=== PATIENT | female | born 1945 | race Caucasian/White ===

== ENCOUNTER → 2023-12-05 10:56 | Outpatient (REF) | payer MEDICARE, OTHER, SELFPAY ==
[2023-12-05 12:14] LABS: ALT (SGPT) 14 U/L (0-35); AST (SGOT) 28 U/L (14-36); Albumin 3.5 g/dl (3.5-5.0); Alkaline Phosphatase 107 U/L (38-126); Blood Urea Nitrogen 21 mg/dl (7-17); Calcium 9.6 mg/dl (8.4-10.2); Carbon Dioxide 31 mmol/L (22-30); Chloride 97 mmol/L (98-107); Glucose 122 mg/dl (70-99); Sodium 137 mmol/L (135-145); Total Bilirubin 0.8 mg/dl (0.2-1.3); Total Protein 6.3 g/dl (6.3-8.2); eGFR 51.43
== END ==
LOC: REG 10:56
PROVIDERS: ATTENDING PHYSICIAN Internal Medicine Hematology & Oncology; FAMILY PHYSICIAN Internal Medicine
DX: C64.1 Malignant neoplasm of right kidney, except renal pelvis (principal); C78.00 Secondary malignant neoplasm of unspecified lung; D64.9 Anemia, unspecified; C79.51 Secondary malignant neoplasm of bone; R09.02 Hypoxemia
CPT/HCPCS: 36415; 80053

== ENCOUNTER → 2024-02-16 10:34 | Outpatient (REF) | payer MEDICARE, OTHER, SELFPAY | LOC: RAD 10:34 | PROVIDERS: ATTENDING PHYSICIAN Nurse Practitioner Adult Health; FAMILY PHYSICIAN Internal Medicine | DX: C64.1 Malignant neoplasm of right kidney, except renal pelvis (principal); C78.00 Secondary malignant neoplasm of unspecified lung; D64.9 Anemia, unspecified; C79.51 Secondary malignant neoplasm of bone; R09.02 Hypoxemia | CPT/HCPCS: 72128 ==

== ENCOUNTER → 2024-10-06 14:24 | Outpatient (REF) | payer MEDICARE, OTHER, SELFPAY ==
[2024-10-06 15:48] LABS: Blood Urea Nitrogen 26 mg/dl (7-17); Calcium 9.5 mg/dl (8.4-10.2); Carbon Dioxide 36 mmol/L (22-30); Chloride 93 mmol/L (98-107); Glucose 105 mg/dl (70-99); Potassium 4.3 mmol/L (3.5-5.1); Sodium 137 mmol/L (135-145); eGFR 57.31
== END ==
LOC: REG 14:24
PROVIDERS: ATTENDING PHYSICIAN Internal Medicine Hematology & Oncology; FAMILY PHYSICIAN Internal Medicine; OTHER PHYSICIAN Internal Medicine Hospice and Palliative Medicine
DX: C64.1 Malignant neoplasm of right kidney, except renal pelvis (principal); C78.00 Secondary malignant neoplasm of unspecified lung; D64.9 Anemia, unspecified; C79.51 Secondary malignant neoplasm of bone; R09.02 Hypoxemia; G89.3 Neoplasm related pain (acute) (chronic)
CPT/HCPCS: 36415; 80048

== ENCOUNTER → 2024-10-14 08:11 | Outpatient (REF) | payer MEDICARE, OTHER, SELFPAY | LOC: RAD 08:11 | PROVIDERS: ATTENDING PHYSICIAN Internal Medicine Hematology & Oncology; FAMILY PHYSICIAN Internal Medicine; OTHER PHYSICIAN Internal Medicine Hospice and Palliative Medicine | DX: C64.1 Malignant neoplasm of right kidney, except renal pelvis (principal); C78.00 Secondary malignant neoplasm of unspecified lung; D64.9 Anemia, unspecified; C79.51 Secondary malignant neoplasm of bone; R09.2 Respiratory arrest; G89.3 Neoplasm related pain (acute) (chronic) | CPT/HCPCS: 71250; 74176 ==

== ENCOUNTER → 2024-11-10 14:47 | Outpatient (REF) | payer MEDICARE, OTHER, SELFPAY | LOC: MRI 3T 14:47 | PROVIDERS: ATTENDING PHYSICIAN Internal Medicine Hematology & Oncology; FAMILY PHYSICIAN Internal Medicine; REFERRING PHYSICIAN Internal Medicine Hospice and Palliative Medicine | DX: C64.1 Malignant neoplasm of right kidney, except renal pelvis (principal); C78.00 Secondary malignant neoplasm of unspecified lung; D64.9 Anemia, unspecified | CPT/HCPCS: 70553 ==

== ENCOUNTER → 2025-05-07 09:18 | Outpatient (REF) | payer MEDICARE, OTHER, SELFPAY ==
[2025-05-07 10:15] LABS: Hematocrit 39.2 % (37.0-47.0); Hemoglobin 12.5 g/dL (12.0-16.0); Mean Corp Hgb Conc. 31.9 g/dL (33.0-37.0); Mean Corpuscular Volume 100.0 fL (81.0-99.0); Nucleated Red Blood Cells % 0 %; Platelet Count 191 10^3/uL (130-400); Red Cell Dist. Width 13.2 % (11.5-14.5)
[2025-05-07 11:09] LABS: ALT (SGPT) 22 U/L (0-35); AST (SGOT) 29 U/L (14-36); Albumin 4.0 g/dl (3.5-5.0); Alkaline Phosphatase 100 U/L (38-126); Blood Urea Nitrogen 30 mg/dl (7-17); Calcium 9.4 mg/dl (8.4-10.2); Carbon Dioxide 35 mmol/L (22-30); Chloride 97 mmol/L (98-107); Glucose 136 mg/dl (70-99); HDL Cholesterol 45 mg/dl; LDL Cholesterol, Calculated 70 mg/dl; Potassium 4.6 mmol/L (3.5-5.1); Sodium 137 mmol/L (135-145); Total Protein 6.6 g/dl (6.3-8.2); Very Low Density Lipoprotein 30 mg/dl (0-30); eGFR 41.57
[2025-05-07 11:22] LABS: Glycohemoglobin (HgbA1c) 6.3 % (4.0-5.6)
== END ==
LOC: REG 09:18
PROVIDERS: ATTENDING PHYSICIAN Internal Medicine; REFERRING PHYSICIAN Internal Medicine Hematology & Oncology
DX: E11.9 Type 2 diabetes mellitus without complications (principal); E78.5 Hyperlipidemia, unspecified; I10 Essential (primary) hypertension; E03.9 Hypothyroidism, unspecified; E66.3 Overweight; Z00.01 Encounter for general adult medical examination with abnormal findings
CPT/HCPCS: 36415; 80053; 80061; 83036; 84443; 85025

== ENCOUNTER → 2025-05-11 10:14 | Outpatient (REF) | payer MEDICARE, OTHER, SELFPAY | LOC: HWRAD 10:14 | PROVIDERS: ATTENDING PHYSICIAN Internal Medicine Hematology & Oncology; FAMILY PHYSICIAN Internal Medicine | DX: C64.1 Malignant neoplasm of right kidney, except renal pelvis (principal); C78.00 Secondary malignant neoplasm of unspecified lung; C64.2 Malignant neoplasm of left kidney, except renal pelvis | CPT/HCPCS: 74150 ==

== ENCOUNTER 2025-05-17 12:37 | Inpatient (IN) | payer MEDICARE, OTHER, SELFPAY ==
[2025-05-17] VITALS (17 sets, daily range): BP systolic 72–157; BP diastolic 38–84; BMI 30.8; BMI 29.2
[2025-05-17 08:37] LABS: Hematocrit 42.5 % (37.0-47.0); Hemoglobin 12.9 g/dL (12.0-16.0); Mean Corp Hgb Conc. 30.4 g/dL (33.0-37.0); Mean Corpuscular Volume 104.9 fL (81.0-99.0); Nucleated Red Blood Cells % 0 %; Platelet Count 172 10^3/uL (130-400); Red Cell Dist. Width 13.8 % (11.5-14.5)
--- NOTE | 2025-05-17 08:49 | ED.GENMED ---
History of Present Illness
General
Chief Complaint: Breathing Problem
Time Seen by Provider: 05/17/25 08:08
History of Present Illness
History of Present Illness:
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
breath. Patient reports shortness of breath for the past 3 days. Notes yesterday she started to feel very nauseous. This morning at 1 AM she woke up acutely with nausea, vomiting, diaphoresis and increased shortness of breath. Denies fever.
Does note cough, however is having difficulty expectorating. She is currently not on any treatment for her cancer. She denies any associated chest pain. She denies abdominal pain. She has noted some mild lower extremity edema. She is on Lasix.
Patient has a pulse ox at home, reports that her O2 saturations were going into the 70s. She is not oxygen dependent. She denies additional acute medical complaints
Past History
Past History
ED Past Medical History: Cancer (renal w/ mets to lungs, spine, bone, and adrenals), CVA (1994 lacunar), Fibromyalgia, GERD, HTN, Hypercholesterolemia, Hypothyroidism and Other (rectocele, left knee bursitis 2019)
ED Past Surgical History: Cholecystectomy, Gynecological (Hysterectomy) and Urological (right nephrectomy 2019 at [facility])
Patient has exhibited threatening behavior?: No
PSI?: No
Social History
Tobacco: Non-smoker
Alcohol: None
Drug: None
Personal:
Living: alone
Employment: Retired
Family History
Family History: CAD
Phy Exam
Physical Exam
Physical Exam:
General: Well-appearing, no clinical signs of dehydration, nontoxic and in no acute distress
HEENT: protecting airway
Neck: appears supple
CV: Normal heart rate, regular rhythm
Resp: No accessory muscle use, no increased work of breathing. Crackles to the left lung field
Abd: Soft and non-distended, no tenderness to palpation
Extremities: No deformities, +1 lower extremity edema
Neuro: alert, no focal neurologic deficit
: deferred
Rectal: deferred
Psych: Normal affect
Skin: Intact
Scores
Heart Failure Risk
Heart Failure Risk Score: Not Applicable
Course
Orders/Labs/Results
Orders:
Orders
05/17/25 08:05
Electrocardiogram (*1) Urgent
Reason for Study: Shortness of Breath
CXR2 [CR Chest - 2 Views ] Urgent
Comment:
Reason For Exam: shortness of breath
05/17/25 08:06
EKG- Treatment ONCE
05/17/25 08:28
Complete Blood Count/With Diff Urgent
Comprehensive Metabolic Panel Urgent
Magnesium Urgent
NT-proBNP Urgent
Troponin I Urgent
05/17/25 08:30
Morphine Sulfate Extended Rel. [Ms Contin (Extended Release)] 15 mg PO NOW STA
05/17/25 08:53
Morphine Sulfate Extended Rel. [Ms Contin (Extended Release)] 15 mg PO NOW STA
05/17/25 Lunch
Cholesterol Lowering
At Your Request: Full Participation
Does patient need a safe tray?: No
Reason for opting out of Otolaryngology Rep order writing: Provider Decision
Cholesterol Lowering: Sodium, 2 Gram
05/17/25 10:12
CT Chest W/o Iv Contrast Urgent
Comment:
Reason For Exam: hypoxic, SOB
05/17/25 12:25
Admit/Transfer Patient As Directed
Co-Sign Provider:
Level of Care: Inpatient admission
Assign to:: Telemetry
Physician / Group: Dr Calvert
Diagnosis: Hypoxia
Reason for Telemetry: Arrhythmia
Date to Stop Telemetry: 05/20/25
Time to Stop Telemetry: 11:00
Reason for Hospitalization: Hypoxia
Expected length of stay greater than two midnights?: Yes
ELOS- Estimated Length of Stay in days: 2
I certify the patient meets the requirements for IP care: Yes
Code Status As Directed
Resuscitation Status: Full Code
PRN Pain Medication Management As Directed
May give lesser potent ordered pain med per pt: Yes
preference::
Protocol:: Medication orders for pain may be administered in a
manner that supports deferring to patient preference
when the pt is:
- Requesting an ordered lesser potent pain medication.
Least to most potent pain medications are defined
as: acetaminophen < NSAID < tramadol < opioids
(morphine, oxycodone, hydromorphone).
- Requesting a lesser dose of the same medication IF
ORDERED.
- Requesting a less intrusive route of administration
if both routes are prescribed by the provider (PO <
IV).
05/17/25 12:26
PULMONARY CONSULT Routine
Consulting Provider: John Pa
Was physician already notified: Yes
Reason for consult: SOB and hypoxia eval
05/17/25 12:54
Bisacodyl [Dulcolax] 10 mg RECTAL [id number] PRN
Docusate W/Senna [Senokot-S] 1 tablet PO BIDPRN PRN
Polyethylene Glycol Powder [Miralax] 17 grams PO DAILYPRN PRN
05/17/25 12:54
Activity As Directed
Activity Level: Out of Bed-Early Mobility
Pneumatic Compression Sleeves As Directed
Type: Knee high
Vital Signs As Directed
Frequency: Per unit guidelines
DX Deep Vein Thrombosis Video Routine
05/18/25 06:00
Basic Metabolic Panel IN AM
Complete Blood Count/No Diff IN AM
05/20/25 11:00
DC Protocol for Telemetry ONCE
Abnormal Lab Results
05/17/25
08:28
RBC 4.05 L 10^6/uL
(4.20-5.40)
MCV 104.9 H fL
(81.0-99.0)
MCH 31.9 H pg
(27.0-31.0)
MCHC 30.4 L g/dL
(33.0-37.0)
MPV 10.9 H fL
(7.4-10.4)
Absolute Lymphs (auto) 0.8 L 10^3/uL
(1.2-3.4)
Neutrophils % 78.6 H %
(42.2-75.2)
Lymphocytes % 12.8 L %
(20.5-51.1)
Chloride 96 L mmol/L
(98-107)
Carbon Dioxide 34 H mmol/L
(22-30)
BUN 40 H mg/dl
(7-17)
Creatinine 1.5 H mg/dL
(0.6-1.0)
Glucose 155 H mg/dl
(70-99)
AST 445 H U/L
(14-36)
ALT 211 H U/L
(0-35)
Troponin I 0.332 H* ng/ml
Total Protein 6.2 L g/dl
(6.3-8.2)
05/17/25 08:28
05/17/25 08:28
Vital Signs
Initial and Last Documented VS:
Initial Vital Signs
BP
140/70
05/17/25 08:00
Last Documented Vital Signs
Temp Pulse Resp BP Pulse Ox
97.4 F 50 20 140/60 100
05/18/25 03:00 05/18/25 03:00 05/18/25 03:00 05/18/25 03:00 05/18/25 03:00
MDM/Problems Addressed
MDM/Problems Addressed:
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 Vital signs on
arrival significant for hypoxia.
On exam, patient placed on nasal cannula with improvement of oxygenation and work of breathing. Patient's on exam, crackles to the left lung field. Concern for fluid, possible effusion given known malignancy history. CHF is also consideration,
with mild lower extremity edema. EKG obtained on arrival, significant changes from prior EKG in 2021 with diffuse and deep wave inversions laterally. Patient however without any chest pain. Possible ischemic demand. Pneumonia is also
consideration, notes cough. Denies any fever. PE is on consideration, however lower suspicion given anticoagulation on Eliquis. Plan for laboratory analysis and chest x-ray imaging.
09:25 -patient's labs show elevated troponin. Given abnormal EKG and presenting hypoxia, will plan for CT of the chest. Chest x-ray shows slight pulmonary edema.
10:15 - Patient with IV contrast allergy. For this reason we will proceed with CT without contrast for further assessment of patient's hypoxia
11:00 -CT appears stable. Unclear etiology of patient's hypoxia, however warrants admission due to oxygen requirements, EKG changes, troponin elevation for continued cardiac monitoring, cardiac consultation, respiratory monitoring and oxygen support
*Pulse Oximetry
SaO2: 99
Nasal Cannula flow liters per minute: 3
Patient hypoxic: yes
*EKG
Interpreted by ED Provider?: Yes
EKG Intrepretation Date: 05/17/25
EKG Intrepretation Time: 08:53
Interpretation: abnormal
Comparison EKG: changes noted (08/28/22)
Rate: normal
Rhythm: sinus
Hensel: right axis deviation
Interval: normal interval
QRS Pattern: normal QRS
Ischemia: T-wave inversion (anteriorly and inferiorly)
*Critical Care Note
Total Time (30-74mins, 75-104mins- exclusive of procedures): Not Applicable
ED Attending Note
-
Portions of this chart may have been created with voice recognition software.� Occasional wrong word or��sound alike� substitutions may have occurred due to the inherent limitations of voice recognition software.
Discharge Plan
Departure
Patient Disposition: Admit
Date of Disposition: 05/17/25
Time of Disposition: 11:07
Presentation/result/management discussed w/ accepting MD/DO: Hospitalist
Patient with high blood pressure during this ER visit?: No
Condition: Fair
Discharge Problem:
Hypoxia, Shortness of breath
Interventions
Interventions:
*Risk Screen - Suicide Last Done: 05/17/25 08:06
*General Assessment Last Done: 05/17/25 08:06
*Neglect/Abuse Screening Last Done: 05/17/25 08:06
*ED- Fall Risk Assessment Last Done: 05/17/25 08:06
*ED COVID-19 Vaccine History Last Done: 05/17/25 08:06
*Nursing Disposition Last Done: 05/17/25 17:12
ED- Cardiac Assessment Last Done: 05/17/25 08:06
ED- Pulmonary Assessment Last Done: 05/17/25 08:06
Discharge Date and Time
Discharge Date/Time: 05/17/25 17:32
[2025-05-17 08:58] LABS: ALT (SGPT) 211 U/L (0-35); AST (SGOT) 445 U/L (14-36); Albumin 3.7 g/dl (3.5-5.0); Alkaline Phosphatase 122 U/L (38-126); Blood Urea Nitrogen 40 mg/dl (7-17); Calcium 8.9 mg/dl (8.4-10.2); Chloride 96 mmol/L (98-107); Estimated Creatinine Clearance 26 ml/min; Glucose 155 mg/dl (70-99); Magnesium 2.3 mg/dl (1.6-2.3); Potassium 4.7 mmol/L (3.5-5.1); Sodium 138 mmol/L (135-145); Total Protein 6.2 g/dl (6.3-8.2); eGFR 35.01
--- NOTE | 2025-05-17 09:00 | EDRN ---
the pts medication reconciliation was performed by this RN with the pt, the pt is aware of the medications that she takes daily
[2025-05-17 09:08] LABS: Carbon Dioxide 34 mmol/L (22-30)
[2025-05-17] MEDS: MS CONTIN (EXTENDED RELEASE) 15 MG PO ×3 (09:08→21:41)
[2025-05-17 09:24] LABS: Troponin I 0.332 ng/ml
--- NOTE | 2025-05-17 12:27 | HPS.HSE ---
Family Physician
-
Family Physician: Mode Simmons
Chief Complaint
-
Shortness of breath
History of Present Illness
Patient 80 years old female with multiple comorbidities presented to the hospital shortness of breath. Patient has been experiencing dyspnea on exertion that has progressively getting worse over the last week to 2 weeks associated with dry cough
and also lower extremity edema and weight gain. She denies any chest pain or leg pain. Patient has been taking her oral diuretics but she knows to take some extra diuretics when she gained weight she failed to do that yesterday as per patient
recall. She denies any fevers or chills. She denies nausea vomiting or diarrhea. She denies abdominal pain. She has been checking her pulse ox at home and it has been in the 70s. In the ER she was placed on supplemental oxygen and she had a
chest x-ray and a CT scan of the chest without contrast and also she was noted to have an elevated BNP and she was referred to hospitalist service for further evaluation
Medical History
Past Medical History
Past Medical History: Reports Other
Additional Past Medical History:
Stage IV Renal Cell Cancer
ASCVD / CVA / TIA
Hypertension
Hypothyroidism
Sarcoidosis
Multiple Prior PEs
Past Surgical History: Reports Other
Additional Past Surgical History:
Cholecystectomy
Partial Hysterectomy
Right Nephrectomy
T4 Tumor Excision / Laminectomy / Fusion
I&D of Surgical Site, Flap Surgery
Social History
Tobacco: Non-smoker
Alcohol: Occasional
Drug: None
Family History
Family History: Not pertinent
Allergies / Home Medications
Allergies reflects when Allergies were last updated in [facility].
Home Medications with original date entered in [facility]
Allergy/Medication List:
Allergies
Allergy/AdvReac Type Severity Reaction Status Date / Time
Iodinated Contrast Media Allergy Severe Rash Verified 05/17/25 10:09
Cephalosporins Allergy Unknown Verified 08/27/22 10:34
diflunisal Allergy Unknown Verified 08/27/22 10:34
erythromycin base Allergy Unknown Verified 08/27/22 10:34
iohexol (From Omnipaque) Allergy Hives Verified 08/27/22 10:[address]
NSAIDS (Non-Steroidal Allergy Unknown Verified 08/27/22 10:34
Anti-Inflamma
Sulfa (Sulfonamide Allergy Unknown Verified 08/27/22 10:34
Antibiotics)
ticlopidine Allergy thrombocytopenia Verified 08/27/22 10:34
per patient
Home Medications
apixaban 2.5 mg tablet (Eliquis) 2.5 mg PO BID Blood clot prevention/tx 04/19/22
morphine 15 mg tablet,extended release 15 mg PO BID #20 tabs 08/31/22
furosemide 20 mg tablet 40 mg PO DAILY Fluid retention/Swelling 01/05/23
oxycodone 5 mg tablet 5 mg PO Q4H PRN Pain 01/05/23
polyethylene glycol 3350 17 gram oral powder packet 17 g PO BID #0 ea 01/06/23
sennosides 8.6 mg tablet (senna) 17.2 mg (2 x 8.6 mg) PO HS #0 tabs 01/06/23
lorazepam 1 mg tablet (Ativan) 1 mg PO HS PRN anxiety 05/17/25
Review of Systems
-
A 12 point ROS was completed and negative except as noted: Yes
Physical Exam
Vital Signs
Vital Signs
Temp Pulse Resp BP Pulse Ox
98.2 F 62 20 139/66 100
05/17/25 11:59 05/17/25 11:59 05/17/25 11:59 05/17/25 11:59 05/17/25 11:59
Physical exam:
General: Acutely ill
HEENT: Normocephalic, Atraumatic and Moist Mucous Membranes
Respiratory: Few crackles in the bases; Negative Wheezes, or Rhonchi
Cardiac: Regular Rhythm and S1/S2
GI: Soft, Nontender and Nondistended
Musculoskeletal: Decreased range of motion of the back. No Clubbing, No Cyanosis and B/L Lower extremity Edema
Neuro: Awake, Alert and Oriented, no neurological deficit
Psych: Calm
Physical Exam
General: Other
Laboratory Results
-
05/17/25 08:28
05/17/25 08:28
Laboratory Results
Total Bilirubin 0.7 mg/dl (0.2-1.3) 05/17/25 08:28
AST 445 U/L (14-36) H 05/17/25 08:28
ALT 211 U/L (0-35) H 05/17/25 08:28
Alkaline Phosphatase 122 U/L (38-126) 05/17/25 08:28
Troponin I 0.332 ng/ml H* 05/17/25 08:28
Data Reviewed
-
Diagnostic Radiology: Image Personally Visualized and interpreted
CT Scan: Image Personally Visualized and interpreted
Lab Data: Labs Reviewed by me
Impression/Plan
-
IMPRESSION:
Patient 80 years old female with multiple comorbidities presented to the hospital with shortness of breath and hypoxia with respiratory failure. Probably multifactorial etiology but given patient presentation she is at increased risk of morbidity
mortality and will need to be treated in the hospital and monitor accordingly.
PLAN:
Acute hypoxic respiratory failure:
Suspect related to volume overload/heart failure but cannot exclude other etiologies yet in the setting of her multiple comorbidities
We will start her on diuresis
Oxygen supplementation
Pulmonary consult for further advice-discussed with pulmonary via [place] text today
Seen chest x-ray and CT scan of the chest without contrast
Acute on chronic diastolic congestive heart failure:
Will give Lasix 40 mg IV x 1 stat
Will continue with IV Lasix 40 mg daily with careful attention of renal function and blood pressures
BNP elevated at 13,500
Will monitor ins and outs and daily weights
Will update echocardiogram in a.m.
Elevated troponin:
Elevated troponin due to non-ischemic myocardial injury likely related to heart failure
TWIN:
Suspect cardiorenal syndrome
Monitor renal function while on diuresis
History of stage IV renal cell cancer:
History of nephrectomy in the past and T4 tumor excision status post chemo radiation and immunotherapy
She tells me her cancer has come back and her other kidney after resection and has spread significantly.
She knows her cancer is advanced and she is in the process of palliative care involvement and possible hospice in the near future
History of spine infection:
History of of postsurgical infection thoracic spine following spine surgery
She tells me she remains on antibiotics although I do not see on her med rec
Chronic pain with chronic narcotic use:
On scheduled morphine and oxycodone as needed
Bowel regimen resting
History of PE:
On Eliquis
Med rec not updated yet.
Other medical problems listed but not confirmed:
Hypertension
Hyperlipidemia
Hypothyroidism
CVA
Obesity
Chronic back pain
Diabetes mellitus
Gout
Pulmonary hypertension
Hyponatremia
CKD stage III
CHF
Sarcoidosis
DVT prophylaxis:
On Eliquis
CODE STATUS:
DNR
Time spent 75 minutes
[2025-05-17 14:40] LABS: Troponin I 0.532 ng/ml
--- NOTE | 2025-05-17 15:06 | EDRN ---
Dr. Calvert was notified of the second troponin that is trending up
[2025-05-17] MEDS: LASIX 40 MG IV (15:42)
--- NOTE | 2025-05-17 17:11 | EDRN ---
this RN called the receiving unit and notified them that paper report was going to be tubed up
[2025-05-17] MEDS: SENOKOT 25.8 MG PO (20:24)
[2025-05-17] MEDS: ELIQUIS 2.5 MG PO (20:25)
[2025-05-17] MEDS: ATIVAN 0.5 MG PO (21:41)
[2025-05-17 22:53] LABS: Troponin I 0.423 ng/ml
[2025-05-18 03:00] VITALS: BP 140/60
[2025-05-18] MEDS: SYNTHROID 50 MCG PO (04:12)
[2025-05-18 06:00] VITALS: BMI 29.0
[2025-05-18 07:05] VITALS: BP 138/64
[2025-05-18 07:28] LABS: Hematocrit 37.2 % (37.0-47.0); Hemoglobin 11.8 g/dL (12.0-16.0); Mean Corp Hgb Conc. 31.7 g/dL (33.0-37.0); Mean Corpuscular Volume 102.5 fL (81.0-99.0); Platelet Count 153 10^3/uL (130-400); Red Cell Dist. Width 13.4 % (11.5-14.5)
[2025-05-18 07:52] LABS: Troponin I 0.331 ng/ml
[2025-05-18 07:59] LABS: Blood Urea Nitrogen 33 mg/dl (7-17); Calcium 8.8 mg/dl (8.4-10.2); Carbon Dioxide 40 mmol/L (22-30); Chloride 93 mmol/L (98-107); Estimated Creatinine Clearance 32 ml/min; Glucose 93 mg/dl (70-99); Potassium 4.3 mmol/L (3.5-5.1); Sodium 137 mmol/L (135-145); eGFR 45.76
[2025-05-18] MEDS: MIRALAX 17 GRAMS PO (08:23)
[2025-05-18] MEDS: SENOKOT-S 1 TABLET PO (08:23)
[2025-05-18] MEDS: MS CONTIN (EXTENDED RELEASE) 15 MG PO ×3 (08:23→21:07)
[2025-05-18] MEDS: ELIQUIS 2.5 MG PO ×2 (08:24→21:06)
[2025-05-18] MEDS: LASIX 40 MG IV (08:24)
--- NOTE | 2025-05-18 10:07 | CARDSERVLU ---
Echocardiogram with [facility] completed after protocol screening completed. Allergies verified.
Patent IV site: __rt fa__
IV site flushed with 0.9% NaCl pre and post administration.
Diluted bolus method utilized to enhance visualization of ventricular kent.
Total volume given: _3.0 mL
Patient tolerated all procedures well without complications.
--- NOTE | 2025-05-18 10:53 | CM ---
Reviewed chart. Met with patient at bedside. Lives alone independently in a studio apartment no steps. Children visit frequently and provide support in the home.Currently on palliative care through [place].Uses walker at home, has a shower chair
and shower grab bars. Has had [facility] in the past.Currently on 5 L O2 via [place]. Patient wishes to go home. May need home O2 will follow. Use O2 in the past.
PCP mao Simmons
Pharmacy: [facility]
Insurance: Medicare with [employer]
Drug coverage: with [employer]
Plan: home. Watch for O2 needs
[2025-05-18 11:00] VITALS: BP 152/66
--- NOTE | 2025-05-18 11:45 | W.PN.HOSP.TC ---
Today's Communication/Plan
-
Recheck LFTs
Echocardiogram
Cardiology consult
Assessment / Plan
Assessment / Plan
Gen-AAOx3, NAD
HEENT-NC, AT, anicteric, clear oral mm
Neck-supple
CV-reg, no M, +S1/S2
Lungs-clear B/L
Abd-soft, NT, ND
Ext-no edema
Musculoskeletal-no cyanosis, clubbing
Skin-warm and dry
Neuro-grossly non-focal
Psych-calm, cooperative
Acute hypoxic respiratory failure -due to acute pulmonary edema from acute heart failure exacerbation. Oxygenation stable on 5 L this morning, wean down as able. Nursing reports that she is now 98% on room air.
Acute on chronic heart failure with preserved EF -improving on IV Lasix. Echocardiogram completed, report pending. Consult cardiology.
TWIN -possibly cardiorenal syndrome from a heart failure exacerbation. Creatinine improving.
Troponin elevation -denies chest pain. Possible acute nonischemic myocardial injury due to heart failure exacerbation. EKG on admission shows normal sinus rhythm, right ventricular hypertrophy with repolarization abnormality, nonspecific T wave
abnormality.
Elevated transaminases -with normal bilirubin and alkaline phosphatase. Will recheck labs. Etiology unclear.
History of stage IV renal cell cancer -s/p right nephrectomy. Prior imaging shows chronic L1 vertebral body metastatic lesion. Prior CT from 05/11/2025 confirms exophytic solid lesion within the lower pole of the left kidney measuring 2.2 cm. This
has increased in size compared to September [address]24 CT scan. Highly concerning for renal cell carcinoma. Patient aware of diagnosis.
Currently on palliative care. Patient willing to consider hospice as disease advances.
Chronic pain syndrome/chronic opiate dependence
Hypothyroidism -continue levothyroxine. TSH 4.21 on 05/07/2025.
History of pulmonary emboli
Essential hypertension -stable.
Hyperlipidemia
History of gout
Sarcoidosis
Obesity due to excess calories
DNR
Anticipated Discharge: Within 24 hours
Subjective/Interval History
-
Date of Service: May 18, 2025
Patient seen and examined. Feels better on oxygen, less short of breath. No complaints.
Objective Data
-
Labs:
Laboratory Results
05/18/25
06:51
WBC 5.4
Hgb 11.8 L
Hct 37.2
Plt Count 153
Sodium 137
Potassium 4.3
Chloride 93 L
Carbon Dioxide 40 H
BUN 33 H
Creatinine 1.2 H
Glucose 93
Calcium 8.8
Vital Signs:
Vital Signs
Temp Pulse Resp BP Pulse Ox
97.7 F 52 18 138/64 100
05/18/25 07:05 05/18/25 08:24 05/18/25 07:05 05/18/25 08:24 05/18/25 08:45
I&O
05/17/25 05/18/25 05/19/25
06:59 06:59 06:59
Intake Total 480 / 480
Output Total 400 / 400
Balance 80 / 80
Review of Systems
-
History Source: Patient
All other systems: Reviewed and negative
[2025-05-18] MEDS: OCEAN, SALINE MIST 2 SPRAYS NASAL (12:01)
[2025-05-18] MEDS: MUCINEX 600 MG PO ×2 (12:01→21:06)
--- NOTE | 2025-05-18 12:12 | CON.CAR ---
Addendum entered and electronically signed by Hector Rizvi MD 05/18/25 16:35:
I saw and examined the patient.
The AUTOMATION CONTROL INTEGRATOR's note was reviewed and I agree with the note.
Comment:
80-year-old man with metastatic renal cancer on palliative care, PE on Eliquis, and HFpEF who presents with shortness of breath, orthopnea, edema, and weight gain. In the setting of after mentioned symptoms, she checked her pulse oximeter at home
and found her oxygen saturation to be in the 70s so presented to the ER. She has gotten 2 doses of IV Lasix and already feels dramatically improved. She is still requiring 4 L nasal cannula.
Physical exam notable for regular rate and rhythm, systolic murmur, bibasilar crackles, and trace lower extremity edema
Labs notable for troponin 0.5 -> 0.4 -> 0.3, creatinine 1.2 (at baseline)
ECG 05/18/2025: Normal sinus rhythm, right axis deviation, T wave inversions in the inferior and anterolateral leads, S1Q3T3 pattern concerning for right heart strain
HFpEF exacerbation. She examines mildly volume overloaded and we will continue IV diuresis with IV Lasix 40 mg daily. I do not think she is very far from her dry weight. Her oxygen requirement is somewhat out of proportion to her degree of heart
failure exacerbation. I recommend checking a CT PE given her hypoxic respiratory failure, malignancy and abnormal ECG. We will continue to follow along with you.
Original Note:
Consultation
Consultation Request
Date/Time Consultation Requested: 05/18/25 1143
Date/Time Consultation Performed: 05/18/25 1217
Requesting Provider: Dr. Monroy
Performing Provider: Kelsi KEYS for Dr. Rizvi
Reason for Consultation: CHF
Medical History
-
Chief Complaint: SOB
History of Present Illness:
80 y/o female with metastatic renal carcinoma (hx chemo, XRT, and right nephrectomy)- with mets including lungs, CVA, PE, HTN, HLD, hypothyroidism, and GERD who is here for evaluation of SOB x 5 days with orthopnea, weight gain, and LE edema. Her O2
sat at home was in the 70's. She [facility] and s/p IV lasix and feeling improved. We are consulted due to concern for CHF. She tells me she is on palliative care at home. She does not typically wear O2 by [facility]. Trop was 0.532. EKG with
anterior T wave inversions. She denies any CP. She is compliant with all meds, including lasix and Eliquis.
Past Medical History
Past Medical History: Cancer, CVA, GERD, HTN, Hypercholesterolemia, Hypothyroidism and Other (as above)
Social History
Tobacco: Non-Smoker
Family History
Family History: Reviewed & Not Pertinent
Allergies / Home Medications
Allergy/AdvReac Type Severity Reaction Status Date / Time
Iodinated Contrast Media Allergy Severe Rash Verified 05/17/25 10:09
Cephalosporins Allergy Unknown Verified 08/27/22 10:34
diflunisal Allergy Unknown Verified 08/27/22 10:34
erythromycin base Allergy Unknown Verified 08/27/22 10:34
iohexol (From Omnipaque) Allergy Hives Verified 08/27/22 10:[address]
NSAIDS (Non-Steroidal Allergy Unknown Verified 08/27/22 10:34
Anti-Inflamma
Sulfa (Sulfonamide Allergy Unknown Verified 08/27/22 10:34
Antibiotics)
ticlopidine Allergy thrombocytopenia Verified 08/27/22 10:34
per patient
�Medication �Instructions �Recorded �Confirmed �Type
apixaban 2.5 mg tablet (Eliquis) 2.5 mg PO BID Blood clot 04/19/22 05/17/25 History
prevention/tx
furosemide 20 mg tablet 40 mg PO DAILY Fluid 01/05/23 05/17/25 History
retention/Swelling
lactulose 10 gram/15 mL oral 10 g PO DAILYPRN PRN IF NO BM AFTR 05/17/25 05/17/25 History
solution MIRALAX
levothyroxine 50 mcg tablet 50 mcg PO MOTUWETHFRSA 05/17/25 05/17/25 History
(Synthroid)
levothyroxine 50 mcg tablet 150 mcg PO MONZON 05/17/25 05/17/25 History
(Synthroid)
lorazepam 0.5 mg tablet 0.5 mg PO BIDPRN PRN ANXIETY 05/17/25 05/17/25 History
lorazepam 0.5 mg tablet 0.5 mg PO HS 05/17/25 05/17/25 History
morphine 15 mg tablet,extended 15 mg PO TID 05/17/25 05/17/25 History
release
omadacycline 150 mg tablet (Nuzyra) 300 mg PO DAILY@1400 05/17/25 05/17/25 History
oxycodone 5 mg tablet 5 mg PO TIDPRN PRN break through 05/17/25 05/17/25 History
pains
polyethylene glycol 3350 17 gram 17 g PO DAILYPRN PRN IF NO BM AFTR 05/17/25 05/17/25 History
oral powder packet SENNA
sennosides 8.6 mg tablet (senna) 25.8 mg PO HS 05/17/25 05/17/25 History
Review of Systems
-
History Source: Patient
All other systems: Negative unless noted
Constitutional: Weight Gain
Respiratory: Trouble Breathing
Musculoskeletal: Edema
Physical Exam
Vital Signs
Temp Pulse Resp BP Pulse Ox
98.1 F 56 18 152/66 98
05/18/25 11:00 05/18/25 11:00 05/18/25 11:00 05/18/25 11:00 05/18/25 12:08
Lab Results
05/18/25 06:51
05/18/25 06:51
Troponin I 0.331 ng/ml H* 05/18/25 06:51
Utr-S-Oukpakapyyw Pept 88466 pg/ml 05/17/25 08:28
Physical Exam
General: Well Developed, Well Nourished and No Apparent Distress
HEENT: Normocephalic and Anicteric
Respiratory: Other (coarse lung sounds, on O[facility])
Musculoskeletal: Edema (mild)
Skin: Warm and Dry
Neuro: AO x 3
Psych: Calm
Impression / Plan
-
Acute, hypoxic respiratory failure:
-riwli-xf-krryrwl HFpEF- see below.
-Also she has known lung mets per patient and was previously on [facility]. She initially declined pulm consult here, but would consider if needed. Currently on 4L [place]- wean as able.
Cijzu-sj-hfkasim HFpEF:
-improved. Continue IV Lasix, which requires intensive monitoring
-obtain echo- pending
Abnormal troponin:
-acute, non-ischemic myocardial injury in setting of hypoxemia
-denies any CP
-EKG with anterior T wave inversions - repeat
-echo pending
Hx PE:
-reports compliance with Eliquis- continue
Data:
Chest CT: Stable 0.9 cm nodule in the lingula, most likely representing treated metastasis. Additional sub 0.5 cm nodules, predominantly stable. No parenchymal consolidation, pneumothorax, pleural effusion or pericardial effusion. Mild cardiomegaly.
Coronary artery calcifications. Stable 1.3 cm left adrenal gland calcification, possibly representing chronic calcified hemorrhage.
Data Reviewed
-
EKG: Tracing Personally Visualized and interpreted (NSR 62 BPM, T wave inversions anteriorly)
Radiology: Report Reviewed by me (CXR: Low lung volumes. No acute cardiopulmonary process.)
CT Scan: Report Reviewed by me (CT scan as noted)
Medical Tests (Nuc Med, Echo etc): Other (Echo 04/19/22: Normal left ventricular systolic function. Left ventricular ejection fraction is 60-65%. Mild tricuspid regurgitation. )
Labs: Labs Reviewed by me
[2025-05-18] MEDS: ATIVAN 0.5 MG PO ×2 (12:22→21:06)
[2025-05-18 12:50] LABS: ALT (SGPT) 163 U/L (0-35); AST (SGOT) 150 U/L (14-36); Albumin 3.6 g/dl (3.5-5.0); Alkaline Phosphatase 112 U/L (38-126); Total Protein 6.1 g/dl (6.3-8.2)
[2025-05-18 15:05] VITALS: BP 117/47
[2025-05-18] MEDS: DELTASONE 50 MG PO ×2 (18:12→23:01)
[2025-05-18 19:54] VITALS: BP 141/72
[2025-05-18] MEDS: SENOKOT 25.8 MG PO (21:06)
[2025-05-18] MEDS: ROXICODONE 5 MG PO (22:23)
[2025-05-18 23:48] VITALS: BP 120/57
[2025-05-19] VITALS (8 sets, daily range): BP systolic 119–157; BP diastolic 59–89; PULSE 73; O2SAT 97–99; BMI 29.0
--- NOTE | 2025-05-19 03:55 | DOWNTIME ---
There was a [employer] Downtime on 05/19/2025 from 0100 to 05/19/2025 at 0220. Downtime documentation of patient's care, including medication administrations, has been reconciled in the electronic record per guidelines. Refer to the
patient's paper chart under the miscellaneous tab to see printed paper medication records and downtime forms.
[2025-05-19] MEDS: DELTASONE 50 MG PO (05:14)
[2025-05-19] MEDS: SYNTHROID 50 MCG PO (05:14)
[2025-05-19] MEDS: MIRALAX 17 GRAMS PO ×2 (06:07→15:32)
[2025-05-19 06:52] LABS: ALT (SGPT) 129 U/L (0-35); AST (SGOT) 85 U/L (14-36); Albumin 4.1 g/dl (3.5-5.0); Alkaline Phosphatase 124 U/L (38-126); Blood Urea Nitrogen 30 mg/dl (7-17); Calcium 9.1 mg/dl (8.4-10.2); Chloride 90 mmol/L (98-107); Estimated Creatinine Clearance 35 ml/min; Glucose 171 mg/dl (70-99); Potassium 4.1 mmol/L (3.5-5.1); Sodium 136 mmol/L (135-145); Total Protein 7.0 g/dl (6.3-8.2); eGFR 50.80
[2025-05-19 07:02] LABS: Carbon Dioxide 40 mmol/L (22-30)
[2025-05-19] MEDS: MUCINEX 600 MG PO ×2 (07:35→21:12)
[2025-05-19] MEDS: MS CONTIN (EXTENDED RELEASE) 15 MG PO ×3 (07:35→21:12)
[2025-05-19] MEDS: ELIQUIS 2.5 MG PO ×2 (07:35→21:12)
[2025-05-19] MEDS: LASIX 40 MG IV (07:36)
[2025-05-19] MEDS: BENADRYL 50 MG IV (07:36)
--- NOTE | 2025-05-19 07:39 | W.PN.HOSP.TC ---
Today's Communication/Plan
-
CT chest
Assessment / Plan
Assessment / Plan
Gen-AAOx3, NAD
HEENT-NC, AT, anicteric, clear oral mm
Neck-supple
CV-reg, no M, +S1/S2
Lungs-clear B/L
Abd-soft, NT, ND
Ext-no edema
Musculoskeletal-no cyanosis, clubbing
Skin-warm and dry
Neuro-grossly non-focal
Psych-calm, cooperative
Acute hypoxic respiratory failure -due to acute pulmonary edema from acute heart failure exacerbation. Oxygenation stable on 4 L this morning, wean down as able.
CT chest ordered to rule out pulmonary embolism. Discussed with cardiology.
She does have contrast allergy characterized by hives and shortness of breath. She received steroid prep, Benadryl this morning.
Acute on chronic heart failure with preserved EF -improving on IV Lasix. Echocardiogram shows LVEF 60 to 65%, moderate to severe eccentric mitral regurgitation, moderate eccentric tricuspid regurgitation. Normal RV size and function.
TWIN -possibly cardiorenal syndrome from a heart failure exacerbation. Creatinine improving.
Troponin elevation -denies chest pain. Possible acute nonischemic myocardial injury due to heart failure exacerbation. EKG on admission shows normal sinus rhythm, right ventricular hypertrophy with repolarization abnormality, nonspecific T wave
abnormality.
Elevated transaminases -with normal bilirubin and alkaline phosphatase. Unclear etiology, possibly passive congestion from heart failure. Transaminases trending down.
History of stage IV renal cell cancer -s/p right nephrectomy. Prior imaging shows chronic L1 vertebral body metastatic lesion. Prior CT from 05/11/2025 confirms exophytic solid lesion within the lower pole of the left kidney measuring 2.2 cm. This
has increased in size compared to September [address]24 CT scan. Highly concerning for renal cell carcinoma. Patient aware of diagnosis.
Currently on palliative care. Patient willing to consider hospice as disease advances.
Chronic pain syndrome/chronic opiate dependence
Hypothyroidism -continue levothyroxine. TSH 4.21 on 05/07/2025.
History of pulmonary emboli
Essential hypertension -stable.
Hyperlipidemia
History of gout
Sarcoidosis
Obesity due to excess calories
DNR
PT/OT
Anticipated Discharge: > 48 hours
Subjective/Interval History
-
Date of Service: May 19, 2025
Patient seen and examined. Denies shortness of breath. States she feels trembley.
Objective Data
-
Labs:
Laboratory Results
05/19/25
05:46
Sodium 136
Potassium 4.1
Chloride 90 L
Carbon Dioxide 40 H
BUN 30 H
Creatinine 1.1 H
Glucose 171 H
Calcium 9.1
Total Bilirubin 0.9
AST 85 H
ALT 129 H
Alkaline Phosphatase 124
Vital Signs:
Vital Signs
Temp Pulse Resp BP Pulse Ox
98.4 F 51 16 131/68 98
05/19/25 03:26 05/19/25 03:26 05/19/25 03:26 05/19/25 03:26 05/19/25 03:26
I&O
05/18/25 05/19/25 05/20/25
06:59 06:59 06:59
Intake Total 480 / 480 1200 / 1200
Output Total 400 / 400 1900 / 1900
Balance 80 / 80 -700 / -700
Review of Systems
-
History Source: Patient
All other systems: Reviewed and negative
--- NOTE | 2025-05-19 10:05 | W.PN.CD ---
Today's Communication / Plan
-
IV diuresis
Possibly transition to PO tomorrow
Impression / Plan
-
Acute, hypoxic respiratory failure:
-vltyf-fa-dlbpzwj HFpEF- see below.
-Also she has known lung mets per patient and was previously on O2 by [facility].
- consider pulm consult
- Currently on 4L [place]- wean as able.
Sihrd-hl-feqlgdq HFpEF:
- Continue IV Lasix, which requires intensive monitoring
-obtain echo-below
Abnormal troponin:Nonischemic myocardial injury
-acute, non-ischemic myocardial injury in setting of hypoxemia
-denies any CP
-EKG with anterior T wave inversions - repeat
-echo below
Hx PE:
-NO PE per ct today
Subjective; feeling much improved
Data:
Echo May 18 2025: CONCLUSIONS
Normal biventricular size and systolic function without regional wall motion
abnormality. LVEF 60-65%.
Moderate to severe eccentric mitral regurgitation.
Moderate eccentric tricuspid regurgitation. Normal PASP.
Compared to prior echocardiogram in 2021, mitral and tricuspid regurgitation
have progressed. Mitral regurgitation was previously called trace (appears
mild on my review) and tricuspid regurgitation was mild.
Chest CT: Stable 0.9 cm nodule in the lingula, most likely representing treated metastasis. Additional sub 0.5 cm nodules, predominantly stable. No parenchymal consolidation, pneumothorax, pleural effusion or pericardial effusion. Mild cardiomegaly.
Coronary artery calcifications. Stable 1.3 cm left adrenal gland calcification, possibly representing chronic calcified hemorrhage.
Physical Exam
Vital Signs/Labs
Vital Signs
Temp Pulse Resp BP Pulse Ox
97.5 F 101 16 119/59 96
05/19/25 07:52 05/19/25 07:52 05/19/25 07:52 05/19/25 07:52 05/19/25 07:52
05/18/25 05/19/25 05/20/25
06:59 06:59 06:59
Actual Weight 148 lb 6 oz 148 lb 6.4 oz
05/18/25 06:51
05/19/25 05:46
Magnesium 2.3 mg/dl (1.6-2.3) 05/17/25 08:28
05/17/25
08:28
Ubw-Q-Vkmxfhjtami Pept [id number]
LAB Results
05/17/25 05/17/25 05/17/25
08:28 14:08 22:19
Troponin I 0.332 H* 0.532 H* D 0.423 H*
05/18/25
06:51
Troponin I 0.331 H*
Physical Exam
Constitutional: No acute distress and Comfortable
EENT: Anicteric
Cardiovascular: Rhythm & rate is regular and Pedal edema present (trace)
Respiratory: Respiratory effort normal and Crackles Present
GI: Soft
Neuro/Psych: Alert and Oriented
Data Reviewed
-
Date of Service: May 19, 2025
EKG: Tracing Personally Visualized and interpreted (sr)
Echo: Report Reviewed by me
Labs: Labs Reviewed by me
[2025-05-19] MEDS: DUPHALAC/CHRONULAC 10 GRAMS PO (10:46)
[2025-05-19] MEDS: SENOKOT-S 1 TABLET PO (14:30)
--- NOTE | 2025-05-19 14:30 | CM ---
spoke with patient in room .She remains on oxygen 2 liters Pox 97%.
Will need home oxygen test if still on oxygen.
Offered VN she requested [facility]ia[facility] notified via [facility].
PLAN Home with [facility]
--- NOTE | 2025-05-19 16:09 | RESPNOTE ---
home O2 assessment completed. while ambulating on RA pt desaturated to 85%, placed on 2L and recovered to 96% for the remainder of walk.
[2025-05-19] MEDS: SENOKOT 25.8 MG PO (21:11)
[2025-05-19] MEDS: ATIVAN 0.5 MG PO (21:12)
[2025-05-20] VITALS (7 sets, daily range): BP systolic 107–169; BP diastolic 57–94; PULSE 57–69; BMI 29.0
[2025-05-20] MEDS: SYNTHROID 50 MCG PO (06:04)
--- NOTE | 2025-05-20 07:54 | W.PN.CD ---
Addendum entered and electronically signed by Ada Chapin MD 05/20/25 08:22:
ERROR below will increase po lasix to 80mg once a day, not BID
Original Note:
Today's Communication / Plan
-
transition to po lasix but increase to bid
consider losartan
if goes home today, will ask my office to arrange mobile lab for Sunday
Impression / Plan
-
Acute, hypoxic respiratory failure:
-axxqa-la-hcpwfon HFpEF- see below.
-Also she has known lung mets per patient and was previously on O2 by [facility].
- consider pulm consult
- Currently on 4L [place]- wean as able.
Vqkqr-ge-vrurwam HFpEF:
- improved, will transition to po lasix and increase to BID
-BP is high and CrCl >30 will trial a small dose of losartan if Creatinine stable on repeat labs
Abnormal troponin:Nonischemic myocardial injury
-acute, non-ischemic myocardial injury in setting of hypoxemia
-denies any CP
-EKG with anterior T wave inversions - repeat
-echo below
Hx PE:
-NO PE per ct today
History of stage IV renal cell cancer -s/p right nephrectomy. Current focus is palliative.
Subjective; feeling dyspnea is improved, but very lightheaded this am. Anxious to go home but worried if needs any follow up, because she has transportation issues.
Data:
Echo May 18 2025: CONCLUSIONS
Normal biventricular size and systolic function without regional wall motion
abnormality. LVEF 60-65%.
Moderate to severe eccentric mitral regurgitation.
Moderate eccentric tricuspid regurgitation. Normal PASP.
Compared to prior echocardiogram in 2021, mitral and tricuspid regurgitation
have progressed. Mitral regurgitation was previously called trace (appears
mild on my review) and tricuspid regurgitation was mild.
Chest CT: Stable 0.9 cm nodule in the lingula, most likely representing treated metastasis. Additional sub 0.5 cm nodules, predominantly stable. No parenchymal consolidation, pneumothorax, pleural effusion or pericardial effusion. Mild cardiomegaly.
Coronary artery calcifications. Stable 1.3 cm left adrenal gland calcification, possibly representing chronic calcified hemorrhage.
Physical Exam
Vital Signs/Labs
Vital Signs
Temp Pulse Resp BP Pulse Ox
97.4 F 59 20 169/77 94
05/20/25 03:40 05/20/25 06:26 05/20/25 03:40 05/20/25 06:26 05/20/25 03:40
05/19/25 05/20/25 05/21/25
06:59 06:59 06:59
Actual Weight 148 lb 6.4 oz 148 lb 7 oz
05/18/25 06:51
Magnesium 2.3 mg/dl (1.6-2.3) 05/17/25 08:28
05/17/25
08:28
Dcq-K-Xgclluquviy Pept [id number]
LAB Results
05/17/25 05/17/25 05/17/25
08:28 14:08 22:19
Troponin I 0.332 H* 0.532 H* D 0.423 H*
05/18/25
06:51
Troponin I 0.331 H*
Physical Exam
Constitutional: No acute distress
Cardiovascular: Rhythm & rate is regular, JVD pressure is normal, Systolic murmur absent, Diastolic murmur absent and Pedal edema present (nonpitting, doughy)
Respiratory: Respiratory effort normal, Lungs clear to auscul., Wheeze Absent, Crackles Absent and Rhonchi Absent
Neuro/Psych: AO x 3
Data Reviewed
-
Date of Service: May 20, 2025
Medical Decision Making: Review of Case with other Provider (Dr Monroy need bp conrtrol if labs stable start losartan)
EKG: Other (sinus)
[2025-05-20] MEDS: LASIX IV (08:25)
[2025-05-20] MEDS: ELIQUIS 2.5 MG PO ×2 (08:27→20:21)
[2025-05-20] MEDS: MS CONTIN (EXTENDED RELEASE) 15 MG PO ×3 (08:27→20:22)
[2025-05-20] MEDS: LASIX 80 MG PO (08:28)
[2025-05-20] MEDS: FLUSH (NSS) 1 FLUSH IV (08:28)
[2025-05-20] MEDS: MUCINEX 600 MG PO ×2 (08:28→20:21)
[2025-05-20 08:33] LABS: ALT (SGPT) 78 U/L (0-35); AST (SGOT) 43 U/L (14-36); Albumin 3.6 g/dl (3.5-5.0); Alkaline Phosphatase 92 U/L (38-126); Blood Urea Nitrogen 31 mg/dl (7-17); Calcium 9.2 mg/dl (8.4-10.2); Carbon Dioxide 39 mmol/L (22-30); Chloride 90 mmol/L (98-107); Estimated Creatinine Clearance 38 ml/min; Glucose 108 mg/dl (70-99); Potassium 3.7 mmol/L (3.5-5.1); Sodium 133 mmol/L (135-145); Total Protein 6.1 g/dl (6.3-8.2); eGFR 56.95
[2025-05-20] MEDS: DUPHALAC/CHRONULAC 10 GRAMS PO (08:52)
--- NOTE | 2025-05-20 10:10 | W.PN.HOSP.TC ---
Today's Communication/Plan
-
Orthostatic vitals
Discharge
Assessment / Plan
Assessment / Plan
Gen-AAOx3, NAD
HEENT-NC, AT, anicteric, clear oral mm
Neck-supple
CV-reg, no M, +S1/S2
Lungs-clear B/L
Abd-soft, NT, ND
Ext-no edema
Musculoskeletal-no cyanosis, clubbing
Skin-warm and dry
Neuro-grossly non-focal
Psych-calm, cooperative
Acute hypoxic respiratory failure -due to acute pulmonary edema from acute heart failure exacerbation. Oxygenation improved, now on [address] chest negative for pulmonary embolism.
Patient is in need of oxygen on exertion due to pulse oximetry of 95% on room air at rest; 85% on room air with exertion.
Patient was placed on 2L O2 via nasal cannula with saturation of 95%. Oxygen will help to improve hypoxemia.
Patient is mobile within the home. Albuterol therapy has been discussed and is ineffective in treating hypoxemia-related symptoms.
Oxygen will improve the patient's symptoms.
Acute on chronic heart failure with preserved EF -improving, Lasix changed to 80 mg p.o. daily. Echocardiogram shows LVEF 60 to 65%, moderate to severe eccentric mitral regurgitation, moderate eccentric tricuspid regurgitation. Normal RV size and
function.
TWIN -possibly cardiorenal syndrome from a heart failure exacerbation. Creatinine improving.
Troponin elevation -denies chest pain. Possible acute nonischemic myocardial injury due to heart failure exacerbation. EKG on admission shows normal sinus rhythm, right ventricular hypertrophy with repolarization abnormality, nonspecific T wave
abnormality.
Elevated transaminases -with normal bilirubin and alkaline phosphatase. Unclear etiology, possibly passive congestion from heart failure. Transaminases trending down.
History of stage IV renal cell cancer -s/p right nephrectomy. Prior imaging shows chronic L1 vertebral body metastatic lesion. Prior CT from 05/11/2025 confirms exophytic solid lesion within the lower pole of the left kidney measuring 2.2 cm. This
has increased in size compared to September [address]24 CT scan. Highly concerning for renal cell carcinoma. Patient aware of diagnosis.
Currently on palliative care. Patient willing to consider hospice as disease advances.
Chronic pain syndrome/chronic opiate dependence
Hypothyroidism -continue levothyroxine. TSH 4.21 on 05/07/2025.
History of pulmonary emboli
Essential hypertension -stable.
Hyperlipidemia
History of gout
Sarcoidosis
Obesity due to excess calories
DNR
Dispo -possible discharge this afternoon if stable after orthostatic vitals are checked. Discussed with patient and nurse. Outpatient follow-up. Will need home oxygen arranged, discussed with case management.
32 minutes spent in discharge process.
Anticipated Discharge: Today
Subjective/Interval History
-
Date of Service: May 20, 2025
Patient seen and examined. Currently feels fine, no complaints. Did have an episode of lightheadedness this morning when trying to get to the commode. She believes it was related to lying too far supine overnight.
Objective Data
-
Labs:
Laboratory Results
05/20/25
07:20
Sodium 133 L
Potassium 3.7
Chloride 90 L
Carbon Dioxide 39 H
BUN 31 H
Creatinine 1.0
Glucose 108 H
Calcium 9.2
Total Bilirubin 0.8
AST 43 H
ALT 78 H
Alkaline Phosphatase 92
Vital Signs:
Vital Signs
Temp Pulse Resp BP Pulse Ox
97.5 F 52 16 148/75 100
05/20/25 07:05 05/20/25 07:05 05/20/25 07:05 05/20/25 07:05 05/20/25 07:05
I&O
05/19/25 05/20/25 05/21/25
06:59 06:59 06:59
Intake Total 1200 / 1200 1200 / 1200
Output Total 1900 / 1900 1650 / 1650
Balance -700 / -700 -450 / -450
Review of Systems
-
History Source: Patient
All other systems: Reviewed and negative
[2025-05-20] MEDS: KCL 20 MEQ PO (11:17)
--- NOTE | 2025-05-20 11:32 | VNURNOTE ---
Home Health Liaison met with patient at bedside to discuss [facility] nurse/therapy, visits, schedule and homebound status. Patient is agreeable and understands that visits at home will be 2-3 x per week to assess and teach medical management. Patient
is aware that [facility] will contact them for start of care in 1-2 days after discharge from . patient qualified for home 02 w/exertion. She is aware and agreeable. Rx, clinicals faxed to [facility] [phone].
[facility] referral completed in [facility].
--- NOTE | 2025-05-20 12:13 | W.DS.TRANS ---
DC Summary - Case Monitor
-
Discharge Instructions:
Discharge Diagnosis/Procedures Acute on chronic heart failure exacerbation,
acute kidney injury
Diet 2 Gram Sodium
Activity As tolerated
Driving Restrictions As prior to admission
Bathing Restrictions None
Other Services VN
Instructions:
Stand-Alone Forms:
Changes to Home Medications: Yes
Discharge Medications:
DC Medications w/original date entered in [facility]
apixaban 2.5 mg tablet (Eliquis) 2.5 mg PO BID Blood clot prevention/tx 04/19/22
lactulose 10 gram/15 mL oral solution 10 g PO DAILYPRN PRN IF NO BM AFTR MIRALAX 05/17/25
levothyroxine 50 mcg tablet (Synthroid) 50 mcg PO MOTUWETHFRSA 05/17/25
levothyroxine 50 mcg tablet (Synthroid) 150 mcg PO MONZON 05/17/25
lorazepam 0.5 mg tablet 0.5 mg PO BIDPRN PRN ANXIETY 05/17/25
lorazepam 0.5 mg tablet 0.5 mg PO HS 05/17/25
morphine 15 mg tablet,extended release 15 mg PO TID 05/17/25
omadacycline 150 mg tablet (Nuzyra) 300 mg PO DAILY@1400 05/17/25
oxycodone 5 mg tablet 5 mg PO TIDPRN PRN break through pains 05/17/25
polyethylene glycol 3350 17 gram oral powder packet 17 g PO DAILYPRN PRN IF NO BM AFTR SENNA 05/17/25
sennosides 8.6 mg tablet (senna) 25.8 mg PO HS 05/17/25
furosemide 80 mg tablet 80 mg PO DAILY #30 tabs 05/20/25
guaifenesin 600 mg tablet, extended release 12 hr 600 mg PO Q12 #0 tabs 05/20/25
losartan 25 mg tablet 25 mg PO DAILY #30 tabs 05/20/25
potassium chloride 20 mEq tablet,extended release(part/cryst) 20 meq PO DAILY #30 tabs 05/20/25
Home Medication Changes
Furosemide dose increased to 80mg daily.
Pending Results: No
--- NOTE | 2025-05-20 13:05 | CM ---
CM reviewed chart, patient seen bedside, for discharge today. Patient will discharge home with [facility], [employer] to deliver oxygen by 3:00 p.m. Patients son will transport home after work after 4:00 p.m. IMM verbally reviewed, patient declined need for
copy, placed in chart. CM will continue to follow for all discharge planning needs.
Plan; home with [facility], [employer] to deliver O2
[2025-05-20] MEDS: COZAAR 25 MG PO (13:48)
--- NOTE | 2025-05-20 14:15 | PTCARENOTE ---
patient was in bathroom had bowel movement and upon standing felt like the room was starting to spin- sat down on toilet and rang for nurse. assisted patient back to bed. vitals WNL- patient reluctant to go home when she keeps having these episodes.
Dr klein made aware and wanted PT to re eval pateint for positional vertigo. PT made aware- waiting for their eval. plan of care on going.
[2025-05-20] MEDS: ATIVAN 0.5 MG PO (20:21)
[2025-05-20] MEDS: SENOKOT PO (20:22)
[2025-05-20] MEDS: ROXICODONE 5 MG PO (22:35)
[2025-05-21 03:30] VITALS: BP 129/61
[2025-05-21] MEDS: SYNTHROID 50 MCG PO (03:55)
[2025-05-21] MEDS: ANESTHETIC LOZENGE 1 LOZENGE PO (03:55)
[2025-05-21 05:33] VITALS: BMI 28.6
[2025-05-21 07:00] VITALS: BP 121/57
--- NOTE | 2025-05-21 07:41 | W.PN.HOSP.TC ---
Today's Communication/Plan
-
Check CMP
Discharge after PT
Assessment / Plan
Assessment / Plan
Gen-AAOx3, NAD
HEENT-NC, AT, anicteric, clear oral mm
Neck-supple
CV-reg, no M, +S1/S2
Lungs-clear B/L
Abd-soft, NT, ND
Ext-no edema
Musculoskeletal-no cyanosis, clubbing
Skin-warm and dry
Neuro-grossly non-focal
Psych-calm, cooperative
Acute hypoxic respiratory failure -due to acute pulmonary edema from acute heart failure exacerbation. Oxygenation improved, now on [address] chest negative for pulmonary embolism.
Patient is in need of oxygen on exertion due to pulse oximetry of 95% on room air at rest; 85% on room air with exertion.
Patient was placed on 2L O2 via nasal cannula with saturation of 95%. Oxygen will help to improve hypoxemia.
Patient is mobile within the home. Albuterol therapy has been discussed and is ineffective in treating hypoxemia-related symptoms.
Oxygen will improve the patient's symptoms.
Acute on chronic heart failure with preserved EF -improving, Lasix changed to 80 mg p.o. daily. Echocardiogram shows LVEF 60 to 65%, moderate to severe eccentric mitral regurgitation, moderate eccentric tricuspid regurgitation. Normal RV size and
function.
TWIN -possibly cardiorenal syndrome from a heart failure exacerbation. Creatinine improving.
Benign paroxysmal positional vertigo -she had 2 episodes yesterday. Possibly triggered by lying 2 for supine the night before. Modified [place] maneuver performed by PT yesterday, PT to revisit today. She feels better today, slept with her head
elevated last night.
Hyponatremia -133 yesterday, labs pending for today.
Troponin elevation -denies chest pain. Possible acute nonischemic myocardial injury due to heart failure exacerbation. EKG on admission shows normal sinus rhythm, right ventricular hypertrophy with repolarization abnormality, nonspecific T wave
abnormality.
Elevated transaminases -with normal bilirubin and alkaline phosphatase. Unclear etiology, possibly passive congestion from heart failure. Transaminases trending down.
History of stage IV renal cell cancer -s/p right nephrectomy. Prior imaging shows chronic L1 vertebral body metastatic lesion. Prior CT from 05/11/2025 confirms exophytic solid lesion within the lower pole of the left kidney measuring 2.2 cm. This
has increased in size compared to September 2024 CT scan. Highly concerning for renal cell carcinoma. Patient aware of diagnosis.
Currently on palliative care. Patient willing to consider hospice as disease advances.
Chronic pain syndrome/chronic opiate dependence
Hypothyroidism -continue levothyroxine. TSH 4.21 on 05/07/2025.
History of pulmonary emboli
Essential hypertension -stable.
Hyperlipidemia
History of gout
Sarcoidosis
Obesity due to excess calories
DNR
Dispo -stable for discharge home today after PT assessment. May need outpatient vestibular therapy if vertigo persists. Follow-up with PCP, oncology, cardiology.
Anticipated Discharge: Today
Subjective/Interval History
-
Date of Service: May 21, 2025
Patient seen and examined. Feeling better today. No complaints.
Objective Data
-
Labs:
Laboratory Results
05/21/25
07:34
Sodium Pending
Potassium Pending
Chloride Pending
Carbon Dioxide Pending
BUN Pending
Creatinine Pending
Glucose Pending
Calcium Pending
Total Bilirubin Pending
AST Pending
ALT Pending
Alkaline Phosphatase Pending
Vital Signs:
Vital Signs
Temp Pulse Resp BP Pulse Ox
97.8 F 52 18 129/61 99
05/21/25 03:30 05/21/25 03:30 05/21/25 03:30 05/21/25 03:30 05/21/25 03:30
I&O
05/20/25 05/21/25 05/22/25
06:59 06:59 06:59
Intake Total 1200 / 1200 960 / 960
Output Total 1650 / 1650 900 / 900
Balance -450 / -450 60 / 60
Review of Systems
-
History Source: Patient
All other systems: Reviewed and negative
[2025-05-21] MEDS: MUCINEX 600 MG PO (09:05)
[2025-05-21] MEDS: COZAAR 25 MG PO (09:05)
[2025-05-21] MEDS: ELIQUIS 2.5 MG PO (09:05)
[2025-05-21] MEDS: LASIX 80 MG PO (09:05)
[2025-05-21] MEDS: MS CONTIN (EXTENDED RELEASE) 15 MG PO (09:05)
[2025-05-21] MEDS: KCL 20 MEQ PO (09:05)
[2025-05-21] MEDS: FLUSH (NSS) 1 FLUSH IV (09:06)
[2025-05-21 09:22] LABS: ALT (SGPT) 63 U/L (0-35); AST (SGOT) 34 U/L (14-36); Albumin 3.7 g/dl (3.5-5.0); Alkaline Phosphatase 90 U/L (38-126); Blood Urea Nitrogen 28 mg/dl (7-17); Calcium 9.5 mg/dl (8.4-10.2); Carbon Dioxide 34 mmol/L (22-30); Chloride 94 mmol/L (98-107); Estimated Creatinine Clearance 38 ml/min; Glucose 88 mg/dl (70-99); Potassium 4.1 mmol/L (3.5-5.1); Sodium 133 mmol/L (135-145); Total Protein 6.3 g/dl (6.3-8.2); eGFR 56.95
--- NOTE | 2025-05-21 09:39 | VNURNOTE ---
Patient rec'ed portable 02 for home- tank at bedside. Instructed pt to call DME co [employer] when leaving hospital; per their request. Provided [employer] phone # to patient. Patient verbalized understanding.
[2025-05-21 10:53] VITALS: BP 98/63
--- NOTE | 2025-05-21 13:17 | CM ---
Patient seen bedside.
IMM completed yesterday.
oxygen tank bedside.
Son will transport home.
Plan: home with [facility] and oxygen from [facility].
== END 2025-05-21 11:29 | disposition home health service (06) | DRG 291 ==
LOC: 4 EAST ACU 12:37
PROVIDERS: ADMITTING PHYSICIAN Hospitalist; ATTENDING PHYSICIAN Hospitalist; CONSULT PHYSICIAN Student in an Organized Health Care Education/Training Program; EMERGENCY PHYSICIAN Student in an Organized Health Care Education/Training Program; FAMILY PHYSICIAN Internal Medicine
DX: I13.0 Hypertensive heart and chronic kidney disease with heart failure and stage 1 through stage 4 chronic kidney disease, or unspecified chronic kidney disease (principal); I50.33 Acute on chronic diastolic (congestive) heart failure; J96.01 Acute respiratory failure with hypoxia; N17.9 Acute kidney failure, unspecified; C64.9 Malignant neoplasm of unspecified kidney, except renal pelvis; C78.00 Secondary malignant neoplasm of unspecified lung; E87.1 Hypo-osmolality and hyponatremia; F11.20 Opioid dependence, uncomplicated; I5A Non-ischemic myocardial injury (non-traumatic); G89.29 Other chronic pain; Z66 Do not resuscitate; H81.10 Benign paroxysmal vertigo, unspecified ear; E03.9 Hypothyroidism, unspecified; N18.30 Chronic kidney disease, stage 3 unspecified; E11.22 Type 2 diabetes mellitus with diabetic chronic kidney disease; D86.9 Sarcoidosis, unspecified; R74.01 Elevation of levels of liver transaminase levels; E78.00 Pure hypercholesterolemia, unspecified; E66.09 Other obesity due to excess calories; Z51.5 Encounter for palliative care; Z68.28 Body mass index [BMI] 28.0-28.9, adult; Z79.899 Other long term (current) drug therapy; Z79.01 Long term (current) use of anticoagulants; Z86.711 Personal history of pulmonary embolism; Z86.73 Personal history of transient ischemic attack (TIA), and cerebral infarction without residual deficits; Z92.21 Personal history of antineoplastic chemotherapy; Z92.3 Personal history of irradiation
CPT/HCPCS: 71046; 71250; 71275; 80053; 82248; 83735; 83880; 84484; 85025; 85027; 93005; 93306; 97112; 97162; 97166; 99285; Q9950; Q9967

== ENCOUNTER → 2025-06-02 11:34 | Outpatient (REF) | payer MEDICARE, OTHER, SELFPAY | LOC: RADI 11:34 | PROVIDERS: ATTENDING PHYSICIAN Internal Medicine Hematology & Oncology; FAMILY PHYSICIAN Internal Medicine | DX: N28.89 Other specified disorders of kidney and ureter (principal); Z85.528 Personal history of other malignant neoplasm of kidney ==

== ENCOUNTER → 2025-06-15 14:23 | Outpatient (REF) | payer MEDICARE, OTHER, SELFPAY ==
[2025-06-15 15:00] LABS: Hematocrit 38.0 % (37.0-47.0); Hemoglobin 12.3 g/dL (12.0-16.0); Mean Corp Hgb Conc. 32.4 g/dL (33.0-37.0); Mean Corpuscular Volume 98.2 fL (81.0-99.0); Nucleated Red Blood Cells % 0 %; Platelet Count 225 10^3/uL (130-400); Red Cell Dist. Width 12.8 % (11.5-14.5)
[2025-06-15 15:26] LABS: Blood Urea Nitrogen 42 mg/dl (7-17); Calcium 9.4 mg/dl (8.4-10.2); Carbon Dioxide 33 mmol/L (22-30); Chloride 94 mmol/L (98-107); Glucose 163 mg/dl (70-99); Potassium 3.6 mmol/L (3.5-5.1); Sodium 135 mmol/L (135-145); eGFR 56.95
== END ==
LOC: REG 14:23
PROVIDERS: ATTENDING PHYSICIAN Internal Medicine
DX: I50.33 Acute on chronic diastolic (congestive) heart failure (principal)
CPT/HCPCS: 36415; 80048; 85025

== ENCOUNTER 2025-07-13 07:01 | Day surgery (SDC) | payer MEDICARE, OTHER, SELFPAY ==
[2025-07-13] VITALS (12 sets, daily range): BP systolic 75–142; BP diastolic 51–82; BMI 28.6
[2025-07-13 07:33] LABS: Hematocrit 39.7 % (37.0-47.0); Hemoglobin 12.5 g/dL (12.0-16.0); Mean Corp Hgb Conc. 31.5 g/dL (33.0-37.0); Mean Corpuscular Volume 99.7 fL (81.0-99.0); Nucleated Red Blood Cells % 0 %; Platelet Count 227 10^3/uL (130-400); Red Cell Dist. Width 12.9 % (11.5-14.5)
[2025-07-13 07:41] LABS: INR 0.95; PT 12.9 Sec (11.4-14.6)
[2025-07-13 07:42] LABS: APTT 26.3 Sec (23.4-35.0)
[2025-07-13 07:54] LABS: ALT (SGPT) 20 U/L (0-35); AST (SGOT) 32 U/L (14-36); Albumin 4.3 g/dl (3.5-5.0); Alkaline Phosphatase 126 U/L (38-126); Blood Urea Nitrogen 31 mg/dl (7-17); Calcium 9.9 mg/dl (8.4-10.2); Carbon Dioxide 39 mmol/L (22-30); Chloride 93 mmol/L (98-107); Estimated Creatinine Clearance 38 ml/min; Glucose 135 mg/dl (70-99); LDH 214 U/L (120-246); Potassium 3.6 mmol/L (3.5-5.1); Sodium 137 mmol/L (135-145); Total Protein 7.3 g/dl (6.3-8.2); eGFR 56.95
[2025-07-13] MEDS: ANCEF 10 IV (09:30)
[2025-07-13] MEDS: SENOKOT-S PO (13:34)
[2025-07-13] MEDS: ROXICODONE 5 MG PO (13:36)
[2025-07-13] MEDS: NSS 1000 IV (13:37)
--- NOTE | 2025-07-13 14:09 | PTCARENOTE ---
pt admitted to room 2116 via bed @ 1300. pt awake and alert. admission database and assessment completed as documented. Pt oriented to room, call gambino and plan of care with verbalized understanding. medicated for chronic back pains
w/OxyContin per DEC. Aceves catheter patent and draining clear yellow urine. pt instructed activity restriction for Bedrest for 4 hours. son at bedside. pt verbalized understanding. care ongoing.
[2025-07-13] MEDS: MS CONTIN (EXTENDED RELEASE) 15 MG PO ×2 (16:19→22:08)
--- NOTE | 2025-07-13 17:58 | W.PN.UPDATE ---
Update Note
Progress Note Update
Doing well post percutaneous microwave ablation left renal mass. Up in chair, NAD. States mild pain, controlled with rx. Aceves removed, no hematuria. Site without hematoma. Dressing dislodged, will be replaced. Anticipate d/c AM.
[2025-07-13] MEDS: ATIVAN 0.5 MG PO (21:55)
[2025-07-14 03:00] VITALS: BP 112/52
[2025-07-14] MEDS: NSS IV ×2 (05:38→05:39)
[2025-07-14] MEDS: SYNTHROID 50 MCG PO (05:56)
--- NOTE | 2025-07-14 07:20 | W.PN.GENERIC ---
Assessment / Plan
-
80 yo female with left renal mass. She underwent microwave ablation yesterday. She is feeling well. She is tolerating POs. She is voiding spontaneously witout hematuria
Plan to discharge home today
Restart Eliquis tonight
Physician Progress Note
Subjective
This is a pleasant 80-year-old female with past medical history significant for right renal clear cell carcinoma with robotic assisted nephrectomy in 2018. At the time of diagnosis she was found to have bilateral lung metastases, adrenal metastases
and spinal metastases. She underwent radiation and chemotherapy and has not been on treatment for several years. Her last radiation treatment was about 2 years ago. She was recently found to have a new left renal mass. She underwent microwave
ablation yesterday in IR. There is no abdominal pain. She is tolerating POs and voiding spontaneously without hematuria. She feels well this morning.
She denies fever, chills, dizziness, lightheadedness, chest pain, palpitations, shortness of breath, nausea, hematuria, dysuria, frequency.
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
PSH: Partial hysterectomy in 1989, cholecystectomy 1994, robotic-assisted right total nephrectomy 2018, T3-T5 laminectomy 2021.
Social History: She lives independently. She has no prior history of tobacco use.
Objective
Vital Signs
Temp Pulse Resp BP Pulse Ox
97.7 F 64 16 112/52 97
07/14/25 03:00 07/14/25 03:00 07/14/25 03:00 07/14/25 03:00 07/14/25 03:00
Lab Results
07/13/25 07:18
07/13/25 07:18
The patient's current medications were documented and reviewed at the time of this visit , including medication name, dosage, frequency, and route of administration.
This is a WNWD 80 yo female in NAD lying in bed.. Color is good. SKin is warm and dry. HEart is regular. Lungs are clear throughout. Abdomen is soft and nontender. No CVAT. Dressing CDI. No hematoma.
[2025-07-14 07:30] VITALS: BP 114/54
[2025-07-14] MEDS: MS CONTIN (EXTENDED RELEASE) 15 MG PO (08:24)
[2025-07-14] MEDS: SENOKOT-S 1 TABLET PO (08:25)
[2025-07-14] MEDS: ELIQUIS 2.5 MG PO (08:25)
[2025-07-14] MEDS: LASIX 80 MG PO (08:25)
--- NOTE | 2025-07-14 10:42 | VNURNOTE ---
Chart reviewed. Patient is current with [facility]. Spoke with pt, who confirms would like to resume with services upon DC. Anticipate < 24 hr hospitalization. [facility] Intake notified. Primary VN Shae to see patient tomorrow for home visit.
[2025-07-14] MEDS: ATIVAN 0.5 MG PO (10:47)
[2025-07-14 11:12] VITALS: BP 131/66
--- NOTE | 2025-07-14 12:01 | CM ---
CM met with patient in room. Patient lives independently, but her son lives close to her. Patient is known to VN, and Palliative Care. CM updated VN with plan for discharge. Patient stated that she has a traumatic experience at rehab and she
was very tearful and anxious regarding discussing her experience. CM updated [facility] at [facility] to discuss outpatient psychotherapy.
PLAN: Home with [facility].
== END 2025-07-14 11:26 | disposition home or self-care (01) ==
LOC: SDS 07:01
PROVIDERS: ATTENDING PHYSICIAN Radiology Vascular & Interventional Radiology; FAMILY PHYSICIAN Internal Medicine; OTHER PHYSICIAN Physician Assistant; REFERRING PHYSICIAN Internal Medicine Hematology & Oncology
DX: C64.2 Malignant neoplasm of left kidney, except renal pelvis (principal); C64.1 Malignant neoplasm of right kidney, except renal pelvis; C78.00 Secondary malignant neoplasm of unspecified lung; G89.3 Neoplasm related pain (acute) (chronic)
CPT/HCPCS: 50592; 36415; 77013; 80053; 82248; 83615; 85025; 85610; 85730; 88305

== ENCOUNTER → 2025-09-23 10:11 | Outpatient (REF) | payer MEDICARE, OTHER, SELFPAY | LOC: HWRAD 10:11 | PROVIDERS: ATTENDING PHYSICIAN Internal Medicine Hematology & Oncology; FAMILY PHYSICIAN Internal Medicine | DX: C64.1 Malignant neoplasm of right kidney, except renal pelvis (principal); C78.00 Secondary malignant neoplasm of unspecified lung; C79.51 Secondary malignant neoplasm of bone; D64.9 Anemia, unspecified; R09.02 Hypoxemia; G89.3 Neoplasm related pain (acute) (chronic); C64.2 Malignant neoplasm of left kidney, except renal pelvis | CPT/HCPCS: 71250 ==

== ENCOUNTER 2025-10-16 17:39 | Inpatient (IN) | payer MEDICARE, OTHER, SELFPAY ==
[2025-10-16] VITALS (11 sets, daily range): BP systolic 127–173; BP diastolic 62–82; BMI 30.3; BMI 28.7
--- NOTE | 2025-10-16 13:06 | ED.GENMED ---
History of Present Illness
<Ruchi Peace PA-C - Last Filed: 10/16/25 16:31>
General
Chief Complaint: Breathing Problem
Source: patient
Exam Limitations: none
Time Seen by Provider: 10/16/25 12:51
History of Present Illness
History of Present Illness:
80yoF with a history of metastatic renal cell carcinoma, CHF, pulmonary embolism on Eliquis, hypertension, hyperlipidemia presenting via EMS for evaluation of shortness of breath. Patient started to experience worsening lower extremity edema about
a week ago. Her PCP doubled her Lasix dose without any prove it. She started to feel worse about 2 days ago. She is now having significant fatigue and exertional dyspnea. She has been nauseous for several months and is now not eating very well.
Her visiting nurse checked on her yesterday and she was found to have by bibasilar rales. She was weaned off of oxygen about 6 to 8 weeks ago and was hypoxic on EMS arrival today. She denies any chest pain, fevers, abdominal pain. She is
currently taking Lasix 80 mg twice daily. Last echocardiogram in April showed EF of 60-65% and moderate to severe mitral regurgitation.
Past History
<Ruchi Peace PA-C - Last Filed: 10/16/25 16:31>
Past History
ED Past Medical History: Cancer (renal w/ mets to lungs, spine, bone, and adrenals), CVA (1994 lacunar), Fibromyalgia, GERD, HTN, Hypercholesterolemia, Hypothyroidism and Other (rectocele, left knee bursitis 2019)
ED Past Surgical History: Cholecystectomy, Gynecological (Hysterectomy) and Urological (right nephrectomy 2019 at [facility])
Patient has exhibited threatening behavior?: No
PSI?: No
Social History
Tobacco: Non-smoker
Alcohol: None
Drug: None
Personal:
Living: alone
Employment: Retired
Family History
Family History: CAD
Phy Exam
<Ruchi Peace PA-C - Last Filed: 10/16/25 16:31>
Physical Exam
Physical Exam:
Chronically ill appearing
General Physical Exam
General Presentation: no apparent distress
General Skin: warm and dry
General Habitus: elderly
General Mental: alert
ENT Exam
ENT Exam: normocephalic
Cardiovascular Exam
Cardiovascular Exam: regular rate/rhythm and other (1+ pitting edema in bilateral lower extremities)
Pulmonary Exam
Pulmonary Exam: no respiratory distress and other (Bibasilar rales)
Neurological Exam
Neurological Exam: alert
Rand Coma Scale
Eye Opening: Spontaneous
Verbal Response: Oriented
Motor Response: Obeys Commands
GCS Total Score: 15
Skin Exam
Skin Exam: normal color and warm/dry
Psychiatric Exam
Psychiatric Exam: normal mood/affect
Scores
<Ruchi Peace PA-C - Last Filed: 10/16/25 16:31>
Heart Failure Risk
Heart Failure Risk Score: Not Applicable
Course
<Ruchi Peace PA-C - Last Filed: 10/16/25 16:31>
Orders/Labs/Results
Orders:
Orders
10/16/25 12:47
Electrocardiogram (*1) Urgent
Reason for Study: Shortness of Breath
EKG- Treatment ONCE
CXR2 [CR Chest - 2 Views ] Urgent
Comment:
Reason For Exam: shortness of breath
10/16/25 12:49
Complete Blood Count/With Diff Urgent
NT-proBNP Urgent
10/16/25 13:05
Cardiac Monitoring- Treatment ONCE
10/16/25 14:17
Basic Metabolic Panel Urgent
Troponin I Urgent
10/16/25 14:55
Furosemide [Lasix] 80 mg IV NOW STA
10/16/25 15:53
Magnesium Urgent
Potassium Urgent
10/16/25 15:58
INR [Prothrombin Time] Routine
Urinalysis Reflex To Culture Urgent
Date Specimen was Collected: 10/16/25
Time Specimen was Collected: 15:54
10/16/25 16:06
Add On- LAB Routine
Tests Added?: LFTs
Abnormal Lab Results
10/16/25 10/16/25
12:49 14:17
RBC 3.91 L 10^6/uL
(4.20-5.40)
MCV 99.7 H fL
(81.0-99.0)
MCH 32.5 H pg
(27.0-31.0)
MCHC 32.6 L g/dL
(33.0-37.0)
MPV 11.9 H fL
(7.4-10.4)
Absolute Lymphs (auto) 0.8 L 10^3/uL
(1.2-3.4)
Absolute Monos (auto) 0.7 H 10^3/uL
(0.1-0.6)
Immature Gran % 0.6 H %
(0-0.5)
Neutrophils % 77.8 H %
(42.2-75.2)
Lymphocytes % 10.9 L %
(20.5-51.1)
Sodium 129 L mmol/L
(135-145)
Chloride 85 L mmol/L
(98-107)
Carbon Dioxide 36 H mmol/L
(22-30)
BUN 80 H mg/dl
(7-17)
Creatinine 2.1 H mg/dL
(0.6-1.0)
Glucose 118 H mg/dl
(70-99)
Troponin I 0.111 H* ng/ml
10/16/25 12:49
Vital Signs
Initial and Last Documented VS:
Initial Vital Signs
BP
134/71
10/16/25 12:44
Last Documented Vital Signs
Temp Pulse Resp BP Pulse Ox
98.1 F 54 19 160/81 98
10/16/25 13:04 10/16/25 15:54 10/16/25 15:43 10/16/25 15:54 10/16/25 15:43
<Saw Rasheed MD - Last Filed: 10/16/25 14:44>
Orders/Labs/Results
Orders:
Orders
10/16/25 12:47
Electrocardiogram (*1) Urgent
Reason for Study: Shortness of Breath
EKG- Treatment ONCE
CXR2 [CR Chest - 2 Views ] Urgent
Comment:
Reason For Exam: shortness of breath
10/16/25 12:49
Complete Blood Count/With Diff Urgent
NT-proBNP Urgent
10/16/25 13:05
Cardiac Monitoring- Treatment ONCE
10/16/25 14:17
Basic Metabolic Panel Urgent
Troponin I Urgent
10/16/25 14:55
Furosemide [Lasix] 80 mg IV NOW STA
10/16/25 15:53
Magnesium Urgent
Potassium Urgent
10/16/25 15:58
INR [Prothrombin Time] Routine
Urinalysis Reflex To Culture Urgent
Date Specimen was Collected: 10/16/25
Time Specimen was Collected: 15:54
10/16/25 16:06
Add On- LAB Routine
Tests Added?: LFTs
Abnormal Lab Results
10/16/25 10/16/25
12:49 14:17
RBC 3.91 L 10^6/uL
(4.20-5.40)
MCV 99.7 H fL
(81.0-99.0)
MCH 32.5 H pg
(27.0-31.0)
MCHC 32.6 L g/dL
(33.0-37.0)
MPV 11.9 H fL
(7.4-10.4)
Absolute Lymphs (auto) 0.8 L 10^3/uL
(1.2-3.4)
Absolute Monos (auto) 0.7 H 10^3/uL
(0.1-0.6)
Immature Gran % 0.6 H %
(0-0.5)
Neutrophils % 77.8 H %
(42.2-75.2)
Lymphocytes % 10.9 L %
(20.5-51.1)
Sodium 129 L mmol/L
(135-145)
Chloride 85 L mmol/L
(98-107)
Carbon Dioxide 36 H mmol/L
(22-30)
BUN 80 H mg/dl
(7-17)
Creatinine 2.1 H mg/dL
(0.6-1.0)
Glucose 118 H mg/dl
(70-99)
Troponin I 0.111 H* ng/ml
10/16/25 12:49
Vital Signs
Initial and Last Documented VS:
Initial Vital Signs
BP
134/71
10/16/25 12:44
Last Documented Vital Signs
Temp Pulse Resp BP Pulse Ox
98.1 F 54 19 160/81 98
10/16/25 13:04 10/16/25 15:54 10/16/25 15:43 10/16/25 15:54 10/16/25 15:43
Sandralt;Ruchi Peace PA-C - Last Filed: 10/16/25 16:31>
MDM/Problems Addressed
Differential Diagnosis Includes:
80yoF here with exertional dyspnea, fatigue, and leg swelling. PCP doubled her Lasix without improvement. Hypoxic to 87% on arrival and was placed on 2L NC. No respiratory distress noted. Bibasilar rales noted with peripheral edema. Differential
diagnosis includes: CHF exacerbation, cardiorenal syndrome, pneumonia, atelectasis
Initial ED plan: Check cardiac labs, EKG, and CXR.
<uRchi Peace PA-C - Last Filed: 10/16/25 16:31>
*Pulse Oximetry
SaO2: 99
Patient hypoxic: yes
*EKG
Interpreted by ED Provider?: Yes
EKG Intrepretation Date: 10/16/25
Heart Rate: 53
Rate: bradycardiac
Rhythm: sinus
Huger: normal axis
Interval: normal interval
Ischemia: ST depression (ST/T wave changes noted in anterior leads. Consistent with prior EKG.)
*Critical Care Note
Total Time (30-74mins, 75-104mins- exclusive of procedures): Not Applicable
<Ruchi Peace PA-C - Last Filed: 10/16/25 16:31>
Update Note
Update Note:
BNP >27,000. Troponin elevated at 0.111 although this is actually improved from prior values. EKG with significant ST changes in anterior leads although this appears stable from prior EKGs and she has no chest pain. Creatinine 2.1, up from baseline
of 1.0. 80mg IV Lasix ordered and patient admitted for further management.
ED Attending Note
<Ruchi Peace PA-C - Last Filed: 10/16/25 16:31>
-
Portions of this chart may have been created with voice recognition software.� Occasional wrong word or��sound alike� substitutions may have occurred due to the inherent limitations of voice recognition software.
<Saw Rasheed MD - Last Filed: 10/16/25 14:44>
ED Attending Note
Patient seen and examined by attending physician: Yes
I performed the substantive portion of visit, reviewed & personally made and approve the management plan that is documented in note by myself or RAJI.: Yes
ED Attending Note:
I have seen and evaluated the patient with a [id number] encounter. I have spoken to the [RAJI] and involved in the medical history, the physical exam, medical decision making.
Evaluation and management service: agree unless noted differently below.
Results interpretation: agree unless noted differently below.
Patient is a 80-year-old woman with history of CHF presenting to the emergency department with difficulty breathing especially upon exertion. They have been managing her Lasix outpatient however patient with ongoing shortness of breath. Per EMS
patient was hypoxic placed on nasal cannula. On my evaluation patient is resting comfortably. Her lungs do have crackles at the bilateral bases. She does have bilateral lower extremity edema. Concern for CHF exacerbation. Will check blood work
chest x-ray and admit patient for further diuresis.
Discharge Plan
Departure
Patient Disposition: Admit
Date of Disposition: 10/16/25
Time of Disposition: 15:02
Presentation/result/management discussed w/ accepting MD/DO: Hospitalist
Discharge Problem:
Acute exacerbation of CHF (congestive heart failure), Acute kidney injury, Acute hypoxic respiratory failure
Prescriptions:
No Action
Eliquis 2.5 MG tablet
2.5 mg PO BID
lorazepam 0.5 mg Tablet
0.5 mg PO HS
lorazepam 0.5 mg Tablet
0.5 mg PO BIDPRN PRN (Reason: ANXIETY)
levothyroxine [Synthroid] 50 mcg Tablet
50 mcg PO MOTUWETHFRSA
levothyroxine [Synthroid] 50 mcg Tablet
150 mcg PO MONZON
morphine 15 mg tablet extended release
15 mg PO TID
polyethylene glycol 3350 [Miralax] 17 gram Powder In Packet
17 g PO DAILYPRN PRN (Reason: constipation)
sennosides-docusate sodium [Senna Plus] 8.6-50 mg Tablet
2 tab-cap PO HS
Nuzyra 150 mg Tablet
0 mg PO .COMPLEX
Rx Instructions:
take 2 tablets (300 mg) by mouth once daily@1200 with food
furosemide 80 mg tablet
80 mg PO BID
Referrals:
Tyrese Simmons MD [Family Provider, Internal Medicine]
Interventions
Interventions:
*General Assessment Last Done: 10/16/25 13:04
*Neglect/Abuse Screening Last Done: 10/16/25 13:04
*ED COVID-19 Vaccine History Last Done: 10/16/25 13:04
*ED Influenza Vaccine History Last Done: 10/16/25 13:04
[facility] Fall Risk Assessment Tool Last Done: 10/16/25 13:04
*Risk Screen - Suicide (C-SSRS) Last Done: 10/16/25 13:04
ED- Cardiac Assessment Last Done: 10/16/25 13:04
ED- Pulmonary Assessment Last Done: 10/16/25 13:04
Discharge Date and Time
Print Language: SINHALA
[2025-10-16 13:37] LABS: Hematocrit 39.0 % (37.0-47.0); Hemoglobin 12.7 g/dL (12.0-16.0); Mean Corp Hgb Conc. 32.6 g/dL (33.0-37.0); Mean Corpuscular Volume 99.7 fL (81.0-99.0); Nucleated Red Blood Cells % 0.3 %; Platelet Count 140 10^3/uL (130-400); Red Cell Dist. Width 14.1 % (11.5-14.5)
[2025-10-16 14:47] LABS: Blood Urea Nitrogen 80 mg/dl (7-17); Calcium 8.7 mg/dl (8.4-10.2); Carbon Dioxide 36 mmol/L (22-30); Chloride 85 mmol/L (98-107); Estimated Creatinine Clearance 19 ml/min; Glucose 118 mg/dl (70-99); Sodium 129 mmol/L (135-145); eGFR 23.38
[2025-10-16 14:55] LABS: Troponin I 0.111 ng/ml
--- NOTE | 2025-10-16 15:37 | W.PN.UPDATE ---
Addendum entered and electronically signed by Eligio Lucas MD 10/17/25 19:38:
Laboratory Tests
10/16/25 10/16/25
15:53 15:58
INR 1.91
AST 933 H*
ALT 1102 H*
Alkaline Phosphatase 185 H
Above coagulopathy and elevated Transaminase are due to hepatic venous congestion fo acute on chr HFrEF
Addendum entered and electronically signed by Eligio Lucas MD 10/17/25 00:05:
ADDENDUM:
Hospitalist d/w CBC acrd:
Per Card :
- He had an in-depth conversation with ED-6 Aneta Love and her son, Phuc.
- She has been on palliative care at home, and now with her presentation of worsening CHF despite higher dose diuretics, renal dysfunction, and transaminitis, she wants to now transition to home hospice.
They are ok being here the next couple of days or so, but want to get the ball rolling on making her comfortable at home.
She said that she is at peace with this, has been thinking about it, and is not afraid to . (It almost seemed like she was relieved.)
Hospitalist t:
- will consult Hospice care for AM then decide IP vs OP Hospice
- She is not imminently dying - thus NOT YET COMFORT MEASURE ONLY
- once Hospice care is accepted - then we will pull off active current management -
Original Note:
Update Note
Progress Note Update
This note serves as an addendum to the H&P by marketing proposal specialist [id number]
HPI�
80F
Seen at ER , [facility] for evaluation of SoB
PMHX significant for chr HFpEF, Known TTE evidence of progressive MR and TR , metastatic RC Ca , chr Eliquis for PE on Eliquis, HTN, hyperlipidemia presenting
- pw worsening shortness of breath for lat 2 days and worsening Lamont edema about a week ago
- PCP doubled the Lasix dose without any improvement
- significant fatigue and exertional dyspnea.
- has been nauseous for several months and poor appetite and poor PO intake .
- VN checked on her yesterday and she was found to have by bibasilar rales. She was weaned off of oxygen about 6 to 8 weeks ago and was hypoxic on EMS arrival today. She denies any chest pain, fevers, abdominal pain. She is currently taking Lasix
80 mg twice daily. Last echocardiogram in April showed EF of 60-65% and moderate to severe mitral regurgitation.
PHX: as above
Relevant VS
05/20/25
07/14/25
10/16/25
Actual Weight 67.33 kg 69.626 kg 70.307 kg at ER
10/16/25
13:04 10/16/25
14:13 10/16/25
15:15
Temp 98.1 F
Pulse 58 68 51
Resp Rate 15
Blood pressure 134/71
SaO2 95
Nasal Cannula flow liters per minute 2
PE
Gen: NAD, on 2 L NC O2
HEENT: anicteric
Neck: supple
Lungs: symmetric AE, clear anteriorly
Cor: RRR S1 S2
Abdomen:�soft NT NG
GYMNASTICS COACH: AAO3, NFND
MS: b/l trace ankle edema
Psych: Nl mood and affect
Relevant Data
07/13/25 10/16/25 10/16/25
12:49 14:17
WBC 7.1
Hgb 12.7
Plt Count 140
Sodium 137 129 L
Potassium 3.6
Chloride 85 L
Carbon Dioxide 39 H 36 H
BUN 31 H 80 H
Creatinine 1.0 2.1 H
eGFR 56.95 23.38
Troponin I 0.111 H*
Jgo-I-Felekjlbfaq Pept > 60495
CXR:
Probable mild pulmonary venous congestion. Trace right pleural effusion. No evidence of pneumoni
EKG:
SINUS BRADYCARDIA
RIGHT AXIS DEVIATION
ST and T WAVE ABNORMALITY, CONSIDER ANTERIOR ISCHEMIA
ABNORMAL ECG
WHEN COMPARED WITH ECG OF 18-May-2025 15:05,
T WAVE INVERSION LESS EVIDENT IN INFERIOR LEADS
QT HAS SHORTENED
Confirmed by MD MICHAEL, JULIANE Massey ([id number]) on 10/16/2025 1:09:50 PM
05/18/25 TTE:
- Normal biventricular size and systolic function without regional wall motion abnormality.
- LVEF 60-65%.
- Moderate to severe eccentric mitral regurgitation.
- Moderate eccentric tricuspid regurgitation. Normal PASP.
- Compared to prior echocardiogram in 2021, mitral and tricuspid regurgitation have progressed.
- Mitral regurgitation was previously called trace (appears
- mild on my review) and tricuspid regurgitation was mild.
ASSESSMENT & PLAN
Acute on the medical center HFpEF pw worsening Mark and Lamont edemas failed to improved with OP escalting dose of PO lasix
- Known TTE evidence of progressive MR and TR as of April
- Last LVEF 60-65
- Acute hypoxic RF due to acute HF - c/w 2 L due to acute HF
- c/w IV Lasix 40 BID
- To consider repeat TTE id not recently done as aop
- CBC card consult
Nausea suspect hepatic congestion to HF flare
- check INR and LFts
Hyponatremia suspect hypotonic hypervolemic due to acute HF and vol expansion
- check Sr Osm and Ur Na
- IV Diuresis and FU Na
TWIN -possibly cardiorenal syndrome from HF flare
HX IV renal cell cancer -s/p right nephrectomy.
- Trend Cr in response to IV Lasix
- Avoid ARB, ACEI and other nephrotoxic
Abnormal troponin:Nonischemic myocardial injury n setting of hypoxemia
- denies any CP
- EKG with anterior T wave inversions - less than before per report
- Trend TPNI
Hypothyroidism
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
HX DVT /PE on the medical center Eliquis
HX Benign paroxysmal positional vertigo
HX stage IV renal cell cancer -s/p right nephrectomy.
- Prior imaging shows chronic L1 vertebral body metastatic lesion.
- Prior CT from 05/11/2025 confirms exophytic solid lesion within the lower pole of the left kidney measuring 2.2 cm.
- This has increased in size compared to September [address]24 CT scan. Highly concerning for renal cell carcinoma.
- Patient aware of diagnosis.
- Currently on palliative care.
Chronic pain syndrome/chronic opiate dependence
HX pulmonary emboli
Essential hypertension -stable.
Hyperlipidemia
HX gout
Sarcoidosis
Obesity due to excess calories
DVT Px: the medical center Eliquis
DNR per patient
IP TLM
[2025-10-16] MEDS: LASIX 80 MG IV (15:54)
--- NOTE | 2025-10-16 16:01 | HPS.HSE ---
Family Physician
-
Family Physician: Mode Simmons
Chief Complaint
-
Bilateral lower extremity swelling
History of Present Illness
This is an 80-year-old female patient with past medical history of renal carcinoma with mets, Hx of PE, HTN, hypothyroidism, and Hx of CVA, presenting to the hospital due to concern of lower extremity swelling. She states that for the past 1 week
she has been experiencing bilateral lower extremity edema and then had proceeded to inform her PCP she is normally on Lasix 40 mg and they had increased it to twice a day. Despite this increase, for the past 2 days she had felt that her legs had
worsened. She normally walks with a walker but has been unable to do much physical activity due to this. She denies any fever, SOB, nausea or vomiting. She does have loss of appetite and fatigue.
Medical History
Past Medical History
Past Medical History: Reports Other
Additional Past Medical History:
Stage IV Renal Cell Cancer with mets
ASCVD / CVA / TIA
Hypertension
Hypothyroidism
Sarcoidosis
Multiple Prior PEs
Past Surgical History: Reports Other
Additional Past Surgical History:
Cholecystectomy
Partial Hysterectomy
Right Nephrectomy
T4 Tumor Excision / Laminectomy / Fusion
I&D of Surgical Site, Flap Surgery
Social History
Tobacco: Non-smoker
Alcohol: Occasional
Drug: None
Family History
Family History: Not pertinent
Allergies / Home Medications
Allergies reflects when Allergies were last updated in [facility].
Home Medications with original date entered in [facility]
Allergy/Medication List:
Allergies
Allergy/AdvReac Type Severity Reaction Status Date / Time
Iodinated Contrast Media Allergy Severe Rash Verified 05/17/25 10:09
Cephalosporins Allergy Unknown Verified 08/27/22 10:34
diflunisal Allergy Unknown Verified 08/27/22 10:34
erythromycin base Allergy Unknown Verified 08/27/22 10:34
iohexol (From Omnipaque) Allergy Hives Verified 08/27/22 10:34
[address]
NSAIDS (Non-Steroidal Allergy Unknown Verified 08/27/22 10:34
Anti-Inflamma
Sulfa (Sulfonamide Allergy Unknown Verified 08/27/22 10:34
Antibiotics)
ticlopidine Allergy thrombocytopenia Verified 08/27/22 10:34
per patient
Home Medications
apixaban 2.5 mg tablet (Eliquis) 2.5 mg PO BID Blood clot prevention/tx 04/19/22
levothyroxine 50 mcg tablet (Synthroid) 50 mcg PO MOTUWETHFRSA Thyroid 05/17/25
levothyroxine 50 mcg tablet (Synthroid) 150 mcg PO MONZON Thyroid 05/17/25
lorazepam 0.5 mg tablet 0.5 mg PO BIDPRN PRN ANXIETY 05/17/25
lorazepam 0.5 mg tablet 0.5 mg PO HS Mental Health/Anxiety 05/17/25
morphine 15 mg tablet,extended release 15 mg PO TID 05/17/25
furosemide 80 mg tablet 80 mg PO BID Fluid Retention/Swelling 10/16/25
omadacycline 150 mg tablet (Nuzyra) 0 mg PO .COMPLEX 10/16/25
polyethylene glycol 3350 17 gram oral powder packet (Miralax) 17 g PO DAILYPRN PRN constipation 10/16/25
sennosides 8.6 mg-docusate sodium 50 mg tablet (Senna Plus) 2 tab-cap PO HS Sleep 10/16/25
Review of Systems
-
A 12 point ROS was completed and negative except as noted: Yes
Musculoskeletal: Reports Edema (b/l LLE)
Physical Exam
Vital Signs
Vital Signs
Temp Pulse Resp BP Pulse Ox
98.1 F 54 19 160/81 98
10/16/25 13:04 10/16/25 15:54 10/16/25 15:43 10/16/25 15:54 10/16/25 15:43
Physical Exam
General: Conversant and Appears Chronically Ill
HEENT: NormoCephalic
Respiratory: Clear
Cardiac: S1/S2 and Regular Rhythm
GI: Soft, Non Tender and Non Distended
Musculoskeletal: No Clubbing, No Cyanosis, Edema, Left Lower Extremity, Edema, Right Lower Extremity and No Edema
Skin: Warm and Dry
Neuro: Awake, Alert and Oriented
Psych: Calm
Laboratory Results
-
10/16/25 12:49
Laboratory Results
Total Bilirubin Cancelled 10/16/25 14:17
AST Cancelled 10/16/25 14:17
ALT Cancelled 10/16/25 14:17
Alkaline Phosphatase Cancelled 10/16/25 14:17
Troponin I 0.111 ng/ml H* 10/16/25 14:17
Impression/Plan
-
IMPRESSION:This is an 80-year-old female patient with past medical history of renal carcinoma with mets, Hx of PE, HTN, hypothyroidism, and Hx of CVA, presenting to the hospital due to concern of lower extremity swelling.
PLAN:
#Acute hypoxemic respiratory failure likely due to volume overload/CHF
#HFpEF
-currently on 2L of O2, wean as tolerated
- BNP >31201
- monitor ins and outs, daily weights
- single dose of IV Lasix 80mg given in ED, start IV lasix 40mg BID tomorrow
- Echo in 04/2025 with LVEF 60-65%, with progression of mitral and tricuspid regurg, consider repeating
- cardiology consulted
- CXR: mild pulmonary venous congestion, no PNA
#TWIN
- cr at 2.1
- suspect cardio-renal syndrome
-repleted K with 20meq
- nephrology consulted
#Hyponatremia
-may be due to dilutional effect
-monitor cmp
#elevated troponin
- elevated likely due to non-ischemic myocardial injury likely related to heart failure
#Hx of Spinal infection:
-History of of postsurgical infection thoracic spine following spine surgery
-continue on Nuzyra
#Chronic pain with chronic narcotic use
-On scheduled morphine and oxycodone as needed
-continue Bowel regimen
#Prior hx of PE
-continue eliquis
Code: DNR
DVT ppx: Eliquis
[2025-10-16 16:35] LABS: INR 1.91; PT 22.0 Sec (11.4-14.6)
[2025-10-16 16:43] LABS: Magnesium 2.2 mg/dl (1.6-2.3); Potassium 3.2 mmol/L (3.5-5.1)
[2025-10-16 16:51] LABS: Urine Character Clear (Clear)
[2025-10-16 16:53] LABS: Albumin 4.2 g/dl (3.5-5.0); Alkaline Phosphatase 185 U/L (38-126); Total Protein 6.9 g/dl (6.3-8.2)
[2025-10-16 17:28] LABS: ALT (SGPT) 1102 U/L (0-35); AST (SGOT) 933 U/L (14-36)
--- NOTE | 2025-10-16 17:44 | CON.CAR ---
Addendum entered and electronically signed by Alexis Quinonez MD 10/17/25 08:00:
Chart Correction: Metastatic renal carcinoma.
Addendum entered and electronically signed by Alexis Quinonez MD 10/16/25 18:17:
Patient seen and examined in collaboration with PHYSICIAN SCIENTIST; agree with below.
- 80-year-old female with metastatic anal carcinoma (status-postchemotherapy, XRT, and right nephrectomy), chronic HFpEF, moderate to severe MR, moderate TR, hypertension, hyperlipidemia, previous CVA, and previous PE admitted with dyspnea and
fatigue. The patient is on palliative care at home. The patient's PCP recently doubled her dose of Lasix at home to 80 mg BID with no improvement in her edema or dyspnea.
- Exam: Heart regular rate and rhythm, 3/6 systolic murmur; lungs bilateral crackles; extremities 2+ edema.
- A/P: The patient now has progressive acute on chronic HFpEF, TWIN (BUN/creatinine 80/2.1), and transaminitis consistent with multiorgan dysfunction. She was last hospitalized a little over 4 months ago with CHF; this will continue to recur in much
shorter intervals with high risk for re-hospitalization. Patient does not want any aggressive measures and wishes to transition from palliative care to home hospice. Son is agreeable at bedside. Primary Hospitalist team and Fingerprinter made
aware. Continue IV Lasix for now. Primary Hospitalist team will work on transitioning to home hospice over the next few days.
Original Note:
Consultation
Consultation Request
Date/Time Consultation Requested: 10/16/2025 16:30
Date/Time Consultation Performed: 10/16/2025 17:30
Requesting Provider: Dr. Thomas [ resident]
Performing Provider: LUDMILA Pepe for Dr. Quinonez
Reason for Consultation: Lower extremity swelling
Medical History
-
Chief Complaint: Lower extremity swelling
History of Present Illness:
Aneta Love is an 80-year-old female with metastatic renal carcinoma (prior chemo, XRT, and right nephrectomy) with metastasis, CVA, PE, HFpEF, mitral regurgitation, HTN, HLD, hypothyroidism, and GERD who is here for evaluation of lower extremity
edema. She was on 40 mg daily. This was increased to twice daily and then eventually 80 mg twice daily without change in her edema. Cardiology was consulted for edema management. She denies chest pain, shortness of breath, and dizziness.
Past Medical History
Past Medical History: Cancer (Metastatic renal carcinoma), CHF, CVA, GERD, HTN, Hypercholesterolemia, Hypothyroidism, Valvular Disease (Mitral regurgitation) and Other
Social History
Tobacco: Non-Smoker
Family History
Family History: Reviewed & Not Pertinent
Allergies / Home Medications
Allergy/AdvReac Type Severity Reaction Status Date / Time
Iodinated Contrast Media Allergy Severe Rash Verified 05/17/25 10:09
Cephalosporins Allergy Unknown Verified 08/27/22 10:34
diflunisal Allergy Unknown Verified 08/27/22 10:34
erythromycin base Allergy Unknown Verified 08/27/22 10:34
iohexol (From Omnipaque) Allergy Hives Verified 08/27/22 10:[address]
NSAIDS (Non-Steroidal Allergy Unknown Verified 08/27/22 10:34
Anti-Inflamma
Sulfa (Sulfonamide Allergy Unknown Verified 08/27/22 10:34
Antibiotics)
ticlopidine Allergy thrombocytopenia Verified 08/27/22 10:34
per patient
�Medication �Instructions �Recorded �Confirmed �Type
apixaban 2.5 mg tablet (Eliquis) 2.5 mg PO BID Blood clot 04/19/22 10/16/25 History
prevention/tx
levothyroxine 50 mcg tablet 50 mcg PO MOTUWETHFRSA Thyroid 05/17/25 10/16/25 History
(Synthroid)
levothyroxine 50 mcg tablet 150 mcg PO MONZON Thyroid 05/17/25 10/16/25 History
(Synthroid)
lorazepam 0.5 mg tablet 0.5 mg PO BIDPRN PRN ANXIETY 05/17/25 10/16/25 History
lorazepam 0.5 mg tablet 0.5 mg PO HS Mental Health/Anxiety 05/17/25 10/16/25 History
morphine 15 mg tablet,extended 15 mg PO TID 05/17/25 10/16/25 History
release
furosemide 80 mg tablet 80 mg PO BID Fluid 10/16/25 10/16/25 History
Retention/Swelling
omadacycline 150 mg tablet (Nuzyra) 0 mg PO .COMPLEX 10/16/25 10/16/25 History
polyethylene glycol 3350 17 gram 17 g PO DAILYPRN PRN constipation 10/16/25 10/16/25 History
oral powder packet (Miralax)
sennosides 8.6 mg-docusate sodium 2 tab-cap PO HS Sleep 10/16/25 10/16/25 History
50 mg tablet (Senna Plus)
Review of Systems
-
History Source: Patient
All other systems: Negative unless noted
Constitutional: Fatigue
EENT: No Symptoms
Respiratory: No Symptoms
Cardiac: No Symptoms
Abdomen/GI: No Symptoms
: No Symptoms
Musculoskeletal: Edema
Skin: No Symptoms
Neurological: No Symptoms
Endocrine: No Symptoms
Hematologic/Lymphatic: No Symptoms
Physical Exam
Vital Signs
Temp Pulse Resp BP Pulse Ox
98.1 F 54 19 160/81 98
10/16/25 13:04 10/16/25 15:54 10/16/25 15:43 10/16/25 15:54 10/16/25 15:43
Lab Results
10/16/25 12:49
10/16/25 15:53
Troponin I 0.111 ng/ml H* 10/16/25 14:17
Xyc-E-Ohxjwlacgmn Pept > 04601 pg/ml 10/16/25 12:49
Physical Exam
General: Well Developed, Well Nourished, No Apparent Distress and Comfortable
HEENT: Normocephalic and Anicteric
Respiratory: Clear
Cardiac: S1/S2, Regular Rhythm and Peripheral Edema
Breast: Deferred by me
GI: Soft, Non Tender, Non Distended and Normal Bowel Sounds
Rectal: Deferred by Provider
Genito-urinary: No Costovertebral Tender
Musculoskeletal: No Clubbing and No Cyanosis
Skin: Warm and Dry
Neuro: AO x 3
Hematologic/Lymphatic: No Lymphadenopathy
Psych: Calm
Impression / Plan
-
I/P: 80F with metastatic renal carcinoma (prior chemo, XRT, and right nephrectomy) with metastasis, CVA, PE, HFpEF, mitral regurgitation, HTN, HLD, hypothyroidism, and GERD who is here for evaluation of lower extremity edema.
Primary blade grader operator: Dr. Rizvi
HFpEF, acute on chronic
- She does not have PND nor orthopnea, this could be in the setting of renal carcinoma
- Volume overload is likely in the setting of renal carcinoma as above
- Elevated proBNP but she also has an TWIN
- Diuresis as BP and sodium allow
Renal cell carcinoma, metastatic
-On palliative care at home
Abnormal troponin, nonischemic myocardial injury in the setting of TWIN
- Trend to peak
- EKG stable, chest pain-free
Transaminitis, trend, per primary
Mitral regurgitation, moderate
Hyponatremia, per nephrology
Prior PE, on apixaban
Chronic pain, requiring opioid management, in the setting of metastatic renal cell carcinoma
Data Reviewed
-
EKG: Report Reviewed by me
Medical Tests (Nuc Med, Echo etc): Report Reviewed by me
Old Records: Reviewed
[2025-10-16] MEDS: KCL 20 MEQ PO (17:52)
[2025-10-16] MEDS: MORPHINE SULFATE 2 MG IV (17:52)
--- NOTE | 2025-10-16 17:56 | EDRN ---
this RN noticed that the pts Sp02 dipped to 80% on 2L NC, this RN notified the provider and titrated 02 up to 4L NC and Sp02 came up to 99%, no c/o SOB
--- NOTE | 2025-10-16 18:03 | W.CON.NEPH ---
Addendum entered and electronically signed by Killian Benson MD 10/16/25 18:11:
Elevated LFTs, follow transaminases
Original Note:
Consultation
-
Date/Time Consultation Requested: 10/16/2025 5 PM
Date/Time Consultation Performed: 10/16/2025 6 PM
Requesting Provider: Dr. Lucas
Performing Provider: Dr. Benson
Reason for Consultation: TWIN
Medical History
-
Chief Complaint: Edema
History of Present Illness:
This is an 80-year-old female who has hypothyroidism controlled with Synthroid therapy, heart failure preserved ejection fraction on chronic diuretic therapy typically compensated, metastatic renal cell carcinoma clear-cell type on palliative care
therapy. She had recently undergone ablation of a left exophytic renal mass of 2.2 cm which was accomplished in June 2025. She says that over the last perhaps 2 weeks time she has begun to gain weight and developed lower extreme edema. She
is not certain if she has after felt short of breath or dyspneic though her activity level has certainly decreased enough that she is quite sedentary. She had called her primary care physician would increase her Lasix. Initiate she thought that
she was making some progress but in the last 4 to 5 days she has begun to lose her ground once more and ultimately came to the emergency room. Lower Htay showed acute kidney injury with a creatinine of 2.1 up from a normal baseline with
hypokalemia, hyponatremia, metabolic alkalosis. She says that her oral intake is also been bad as she does have chronic nausea but has been particularly less hungry and less thirsty recently as well. She has had a brisk response to Lasix in the
emergency room.
Past Medical History
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
Right nephrectomy with recurrence in left kidney and subsequent left kidney ablation
Hypothyroidism
Hypertension
Reflux
Hyperlipidemia
Severe mitral regurgitation
Heart failure preserved ejection fraction
Social History
Tobacco: Non-Smoker
Alcohol: None
Family History
Family History: Not Pertinent
Allergies / Home Medications
Allergy/AdvReac Type Severity Reaction Status Date / Time
Iodinated Contrast Media Allergy Severe Rash Verified 05/17/25 10:09
Cephalosporins Allergy Unknown Verified 08/27/22 10:34
diflunisal Allergy Unknown Verified 08/27/22 10:34
erythromycin base Allergy Unknown Verified 08/27/22 10:34
iohexol (From Omnipaque) Allergy Hives Verified 08/27/22 10:34
[address]
NSAIDS (Non-Steroidal Allergy Unknown Verified 08/27/22 10:34
Anti-Inflamma
Sulfa (Sulfonamide Allergy Unknown Verified 08/27/22 10:34
Antibiotics)
ticlopidine Allergy thrombocytopenia Verified 08/27/22 10:34
per patient
�Medication �Instructions �Recorded �Confirmed �Type
apixaban 2.5 mg tablet (Eliquis) 2.5 mg PO BID Blood clot 04/19/22 10/16/25 History
prevention/tx
levothyroxine 50 mcg tablet 50 mcg PO MOTUWETHFRSA Thyroid 05/17/25 10/16/25 History
(Synthroid)
levothyroxine 50 mcg tablet 150 mcg PO MONZON Thyroid 05/17/25 10/16/25 History
(Synthroid)
lorazepam 0.5 mg tablet 0.5 mg PO BIDPRN PRN ANXIETY 05/17/25 10/16/25 History
lorazepam 0.5 mg tablet 0.5 mg PO HS Mental Health/Anxiety 05/17/25 10/16/25 History
morphine 15 mg tablet,extended 15 mg PO TID 05/17/25 10/16/25 History
release
furosemide 80 mg tablet 80 mg PO BID Fluid 10/16/25 10/16/25 History
Retention/Swelling
omadacycline 150 mg tablet (Nuzyra) 0 mg PO .COMPLEX 10/16/25 10/16/25 History
polyethylene glycol 3350 17 gram 17 g PO DAILYPRN PRN constipation 10/16/25 10/16/25 History
oral powder packet (Miralax)
sennosides 8.6 mg-docusate sodium 2 tab-cap PO HS Sleep 10/16/25 10/16/25 History
50 mg tablet (Senna Plus)
Review of Systems
-
Decreased activity, decreased appetite, increased edema, decreased endurance
All other systems: Negative unless noted
Physical Exam
Vital Signs
Vital Signs
Temp Pulse Resp BP Pulse Ox
98.1 F 54 19 160/81 98
10/16/25 13:04 10/16/25 15:54 10/16/25 15:43 10/16/25 15:54 10/16/25 15:43
Lab Results
WBC 7.1 10^3/uL (4.8-10.8) 10/16/25 12:49
RBC 3.91 10^6/uL (4.20-5.40) L 10/16/25 12:49
Hgb 12.7 g/dL (12.0-16.0) 10/16/25 12:49
Hct 39.0 % (37.0-47.0) 10/16/25 12:49
Plt Count 140 10^3/uL (130-400) 10/16/25 12:49
Sodium 129 mmol/L (135-145) L 10/16/25 14:17
Potassium 3.2 mmol/L (3.5-5.1) L 10/16/25 15:53
Chloride 85 mmol/L (98-107) L 10/16/25 14:17
Carbon Dioxide 36 mmol/L (22-30) H 10/16/25 14:17
BUN 80 mg/dl (7-17) H 10/16/25 14:17
Creatinine 2.1 mg/dL (0.6-1.0) H 10/16/25 14:17
eGFR 23.38 10/16/25 14:17
Glucose 118 mg/dl (70-99) H 10/16/25 14:17
Calcium 8.7 mg/dl (8.4-10.2) 10/16/25 14:17
Oxq-A-Tbicmarobjc Pept > 69522 pg/ml 10/16/25 12:49
Albumin 4.2 g/dl (3.5-5.0) 10/16/25 15:53
Laboratory Tests
07/13/25
07:18
Sodium 137
Potassium 3.6
Creatinine 1.0
AST 32
ALT 20
Echocardiogram May 18, 2025 EF 60%, severe MR, moderate TR
Data Reviewed
-
Medical Tests (Nuc Med, Echo etc): Image Personally Visualized and interpreted (EKG 10/16/2025 by my reading sinus bradycardia right axis deviation anterior ST-T wave abnormality) and Report Reviewed by me
Labs: Labs Reviewed by me
Old Records: Reviewed
Assessment/Plan
-
Assessment
TWIN
Hyponatremia
Hypokalemia
Metabolic alkalosis
Decompensated heart failure preserved ejection fraction
Severe MR
Metastatic renal cancer
Solitary left kidney, status post left exophytic mass ablation
Plan
She appears to be in decompensated heart failure
She has excellent response to intravenous Lasix will be continued
Follow BMP
Check urine studies
Check urine protein
[2025-10-16 18:13] LABS: Urine Red Blood Cell 0-2 /HPF (0-2); Urine White Cell 0-2 /HPF (0-5)
[2025-10-16 22:34] LABS: Troponin I 0.147 ng/ml
[2025-10-16] MEDS: SENOKOT-S 2 TABLET PO (23:17)
[2025-10-16] MEDS: ELIQUIS 2.5 MG PO (23:17)
[2025-10-16] MEDS: MS CONTIN (EXTENDED RELEASE) 15 MG PO (23:17)
[2025-10-16] MEDS: ATIVAN 0.5 MG PO (23:17)
[2025-10-17] VITALS (7 sets, daily range): BP systolic 108–141; BP diastolic 59–79; BMI 28.8
[2025-10-17] MEDS: ROXICODONE 5 MG PO (03:08)
[2025-10-17] MEDS: REGLAN 5 MG PO (03:08)
[2025-10-17] MEDS: SYNTHROID 50 MCG PO (06:16)
[2025-10-17] MEDS: LASIX 40 MG IV ×2 (08:26→15:39)
[2025-10-17] MEDS: MS CONTIN (EXTENDED RELEASE) 15 MG PO ×3 (08:26→21:27)
[2025-10-17] MEDS: ELIQUIS 2.5 MG PO ×2 (08:26→21:27)
[2025-10-17 09:10] LABS: Hematocrit 43.3 % (37.0-47.0); Hemoglobin 14.0 g/dL (12.0-16.0); Mean Corp Hgb Conc. 32.3 g/dL (33.0-37.0); Mean Corpuscular Volume 100.7 fL (81.0-99.0); Platelet Count 161 10^3/uL (130-400); Red Cell Dist. Width 14.0 % (11.5-14.5)
[2025-10-17 09:11] LABS: Troponin I 0.437 ng/ml
[2025-10-17 10:06] LABS: Albumin 3.9 g/dl (3.5-5.0); Alkaline Phosphatase 188 U/L (38-126); Blood Urea Nitrogen 72 mg/dl (7-17); Calcium 8.8 mg/dl (8.4-10.2); Chloride 83 mmol/L (98-107); Estimated Creatinine Clearance 20 ml/min; Glucose 110 mg/dl (70-99); Potassium 3.4 mmol/L (3.5-5.1); Sodium 134 mmol/L (135-145); Total Protein 6.8 g/dl (6.3-8.2); eGFR 26.36
[2025-10-17 10:35] LABS: ALT (SGPT) 1001 U/L (0-35); AST (SGOT) 720 U/L (14-36); Carbon Dioxide 41 mmol/L (22-30)
--- NOTE | 2025-10-17 10:35 | W.PN.CD ---
Addendum entered and electronically signed by Alexis Quinonez MD 10/18/25 08:26:
Chart Correction: Metastatic renal carcinoma.
Original Note:
Today's Communication / Plan
-
- Patient does not want any aggressive measures and wishes to transition from palliative care to home hospice.
- Will stop trending troponins.
Impression / Plan
-
80-year-old female with metastatic anal carcinoma (status-postchemotherapy, XRT, and right nephrectomy), chronic HFpEF, moderate to severe MR, moderate TR, hypertension, hyperlipidemia, previous CVA, and previous PE admitted with dyspnea and
fatigue. The patient is on palliative care at home. The patient's PCP recently doubled her dose of Lasix at home to 80 mg BID with no improvement in her edema or dyspnea.
Primary worm packer: Dr. Rizvi
Acute on chronic HFpEF/moderate to severe MR:
-The patient now has progressive acute on chronic HFpEF, TWIN (BUN/creatinine 80/2.1), and transaminitis consistent with multiorgan dysfunction.
-She was last hospitalized a little over 4 months ago with CHF; this will continue to recur in much shorter intervals with high risk for re-hospitalization.
-Patient does not want any aggressive measures and wishes to transition from palliative care to home hospice.
-Continue Lasix 40 mg IV BID for now; hospice consulted as per primary Hospitalist team--will work on transitioning to home hospice over the next day or so.
Renal cell carcinoma, metastatic
- Status-post right nephrectomy.
Abnormal troponin -acute nonischemic myocardial injury in the setting of TWIN
- Will stop trending troponins.
TWIN:
- Creatinine went down from 2.1-1.9 today.
- Nephrology following while inpatient.
Transaminitis, trend, per primary
Hyponatremia, per Nephrology
Prior PE, on apixaban
Chronic pain, requiring opioid management, in the setting of metastatic renal cell carcinoma
Physical Exam
Vital Signs/Labs
Vital Signs
Temp Pulse Resp BP Pulse Ox
98.0 F 54 16 115/59 100
10/17/25 07:47 10/17/25 08:26 10/17/25 07:47 10/17/25 08:26 10/17/25 07:47
10/16/25 10/17/25 10/18/25
06:59 06:59 06:59
Actual Weight 66.82 kg
10/17/25 08:28
10/17/25 08:28
PT 22.0 Sec (11.4-14.6) H 10/16/25 15:58
INR 1.91 10/16/25 15:58
Magnesium 2.2 mg/dl (1.6-2.3) 10/16/25 15:53
10/16/25
12:49
Umv-X-Feqokfjfzrh Pept > 05116
LAB Results
10/16/25 10/16/25 10/16/25
12:49 13:22 14:17
Troponin I Cancelled Cancelled 0.111 H*
10/16/25 10/17/25 10/17/25
22:02 03:08 06:15
Troponin I 0.147 H* D Cancelled Cancelled
10/17/25 10/17/25 10/17/25
08:28 09:08 14:00
Troponin I 0.437 H* Cancelled Cancelled
10/17/25
15:08
Troponin I Cancelled
Physical Exam
Constitutional: No acute distress and Comfortable
EENT: Anicteric
Cardiovascular: Rhythm & rate is regular, Pedal edema present (Trace), Systolic murmur present (3/6) and S1S2 is normal
Respiratory: Respiratory effort normal and Rhonchi Present
GI: Soft
Neuro/Psych: AO x 3
Other: Skin (Warm, dry, and intact)
Data Reviewed
-
Date of Service: October 17, 2025
EKG: Tracing Personally Visualized and interpreted (Telemetry: Sinus rhythm)
Echo: Report Reviewed by me (05/18/2025: LVEF 60-65%, moderate to severe eccentric mitral regurgitation; moderate eccentric tricuspid regurgitation, PASP 29 mmHg.)
Medical Tests (PFT, Pathology etc): Discussed with Physician (Primary Hospitalist) and Discussed with Patient
Labs: Labs Reviewed by me
[2025-10-17] MEDS: NON-FORMULARY ITEM 300 MG PO (11:32)
--- NOTE | 2025-10-17 11:53 | W.PN.NEPH.PH ---
Today's Communication / Plan
-
K
Assessment/Plan
-
Assessment
TWIN
Hyponatremia
Hypokalemia
Metabolic alkalosis
Decompensated heart failure preserved ejection fraction
Severe MR
Metastatic renal cancer
Solitary left kidney, status post left exophytic mass ablation
Plan
intravenous Lasix will be continued
Follow BMP
replete K
follow LFTs
-
-
Date of Service: October 17, 2025
CC / HPI / ROS
-
Chief Complaint:
TWIN
History of Present Illness:
TWIN/Cr down to 1.9
K low 3.4
diuresing well with IV lasix for decompensated HF
Na stable 134
LFTs mmarginally better
Troponin rising 0.437
Review of Systems:
no CP
mild SOB, on supplemental O2 5L
Labs
-
Labs:
WBC 7.9 10^3/uL (4.8-10.8) 10/17/25 08:28
RBC 4.30 10^6/uL (4.20-5.40) 10/17/25 08:28
Hgb 14.0 g/dL (12.0-16.0) 10/17/25 08:28
Hct 43.3 % (37.0-47.0) 10/17/25 08:28
Plt Count 161 10^3/uL (130-400) 10/17/25 08:28
Sodium 134 mmol/L (135-145) L 10/17/25 08:28
Potassium 3.4 mmol/L (3.5-5.1) L 10/17/25 08:28
Chloride 83 mmol/L (98-107) L 10/17/25 08:28
Carbon Dioxide 41 mmol/L (22-30) H 10/17/25 08:28
BUN 72 mg/dl (7-17) H 10/17/25 08:28
Creatinine 1.9 mg/dL (0.6-1.0) H 10/17/25 08:28
eGFR 26.36 10/17/25 08:28
Glucose 110 mg/dl (70-99) H 10/17/25 08:28
Calcium 8.8 mg/dl (8.4-10.2) 10/17/25 08:28
Vpf-Q-Xmuirtpcswl Pept > 43906 pg/ml 10/16/25 12:49
Albumin 3.9 g/dl (3.5-5.0) 10/17/25 08:28
Physical Exam
-
Vital Signs:
Vital Signs
Temp Pulse Resp BP Pulse Ox
98.1 F 61 18 138/72 99
10/17/25 11:29 10/17/25 11:29 10/17/25 11:29 10/17/25 11:29 10/17/25 11:29
Cardiovascular:: Regular rate and rhythm
Respiratory:: Bilateral: Coarse
Lung Excursion:: Normal
Abdomen:: Nontender and Soft
Bowel Sounds:: Normal
Extremity Edema:: +1: Bilateral:
[2025-10-17] MEDS: KCL 40 MEQ PO (12:05)
--- NOTE | 2025-10-17 12:13 | W.PN.HOSP.TC ---
Addendum entered and electronically signed by Bashir Calvert MD 10/17/25 17:09:
Updated son over the phone today
Original Note:
Today's Communication/Plan
-
IV Lasix. Hospice consult
Assessment / Plan
Assessment / Plan
Physical exam:
General: Acute on chronically ill
HEENT: Normocephalic, Atraumatic and Moist Mucous Membranes
Respiratory: Bilateral coarse crackles; Negative Wheezes, or Rhonchi
Cardiac: Regular Rhythm and S1/S2
GI: Soft, Nontender and Nondistended
Musculoskeletal: No Clubbing, No Cyanosis. Bilateral lower extremity edema
Neuro: Awake, Alert and Oriented, no neurological deficit
Psych: Calm
A/P:
Acute on chronic HFpEF:
IV Lasix 40 mg twice daily
Monitor daily weights
Monitor ins and outs
Cardiology consult appreciated
PT eval
Hospice consult
Acute hypoxic respiratory insufficiency:
Wean oxygen as tolerated
Diuresis
TWIN:
Likely cardiorenal syndrome
Monitor renal function
Nephrology consult appreciated
Elevated LFTs:
Likely passive venous congestion
Trend in a.m.
Elevated troponin:
Elevated troponin due to non-ischemic myocardial injury due to heart failure
No need to trend
Moderate mitral and tricuspid regurgitation:
On diuretics
Metastatic renal cell carcinoma:
Status post right nephrectomy in the past
Hyponatremia:
Likely hypervolemia related
Monitor trend in a.m.
Hypothyroidism:
Continue thyroid replacement
Hypokalemia:
Replete and trend
History of PE:
On anticoagulation, Eliquis
Chronic pain with chronic opiate dependence:
Continue pain medication
History of spinal infection:
On Nuzyra
DVT prophylaxis:
Eliquis
CODE STATUS:
Full code
Total time spent on today's encounter was 52 minutes which included time spent in counseling the patient/family regarding diagnosis and treatment plan as listed above, goals of care, and symptom management. Case was discussed with nursing staff,
specialists, and care coordinators/case management. All labs and imaging personally reviewed by me. Remainder the time spent in detailed review of previous records, lab data, imaging, and other medical provider documentation.
Anticipated Discharge: 24 - 48 hours
Subjective/Interval History
-
Date of Service: October 17, 2025
Objective Data
-
Labs:
Laboratory Results
10/17/25 10/17/25
06:15 08:28
WBC Cancelled 7.9
Hgb Cancelled 14.0
Hct Cancelled 43.3
Plt Count Cancelled 161
Sodium Cancelled 134 L
Potassium Cancelled 3.4 L
Chloride Cancelled 83 L
Carbon Dioxide Cancelled 41 H
BUN Cancelled 72 H
Creatinine Cancelled 1.9 H
Glucose Cancelled 110 H
Calcium Cancelled 8.8
Total Bilirubin Cancelled 1.2
AST Cancelled 720 H*
ALT Cancelled 1001 H*
Alkaline Phosphatase Cancelled 188 H
Vital Signs:
Vital Signs
Temp Pulse Resp BP Pulse Ox
98.1 F 61 18 138/72 99
10/17/25 11:29 10/17/25 11:29 10/17/25 11:29 10/17/25 11:29 10/17/25 11:29
I&O
10/16/25 10/17/25 10/18/25
06:59 06:59 06:59
Output Total 950 / 950 450 / 450
Balance -950 / -950 -450 / -450
--- NOTE | 2025-10-17 13:21 | CM ---
manager payment reviewed patient's chart and met with patient and patient's son, Phuc at bedside, patient reports that she lives at [facility], is independent with adl's and uses a cane or walker with ambulation, building has
elevator, patient was on oxygen at home but no longer needed oxygen and oxygen company took it away about 8 months ago, Shante santos current with [facility] and Palliative care, comp field case manager received a consult for hospice, comp field case manager met with patient and
she selected [facility], referral sent to [facility].
PCP: Mode Mustafa
Pharmacy: [facility] in [place]
Plan; Hospice to meet with patient and her 2 sons.
--- NOTE | 2025-10-17 14:14 | HOSPNOTE ---
Hospice referral received. Radha our nurse met with patient and son. They are in agreement to hospice services. Plan is for son to drive patient home Sunday at 11 am and we will provide oxygen to get patient home. We will then have oxygen
delivered for when patient arrives home. Pt denies need for any other equipment at this time. Will notify [facility] and Palliative care as well. Attending and CM updated. Once home Sunday, will sign onto hospice.
[2025-10-17] MEDS: SENOKOT-S 2 TABLET PO (21:27)
[2025-10-17] MEDS: ATIVAN 0.5 MG PO (21:27)
[2025-10-18 03:34] VITALS: BP 139/81
[2025-10-18] MEDS: SYNTHROID 150 MCG PO (05:51)
[2025-10-18 06:00] VITALS: BMI 28.5
[2025-10-18 07:30] VITALS: BP 154/74
[2025-10-18 07:37] LABS: Hematocrit 43.4 % (37.0-47.0); Hemoglobin 13.8 g/dL (12.0-16.0); Mean Corp Hgb Conc. 31.8 g/dL (33.0-37.0); Mean Corpuscular Volume 100.5 fL (81.0-99.0); Platelet Count 152 10^3/uL (130-400); Red Cell Dist. Width 14.5 % (11.5-14.5)
[2025-10-18] MEDS: LASIX 40 MG IV ×2 (07:41→16:05)
[2025-10-18] MEDS: ELIQUIS 2.5 MG PO ×2 (07:41→19:50)
[2025-10-18] MEDS: MS CONTIN (EXTENDED RELEASE) 15 MG PO ×3 (07:41→21:21)
[2025-10-18 08:21] LABS: ALT (SGPT) 658 U/L (0-35); AST (SGOT) 348 U/L (14-36); Albumin 3.6 g/dl (3.5-5.0); Alkaline Phosphatase 149 U/L (38-126); Blood Urea Nitrogen 53 mg/dl (7-17); Calcium 8.7 mg/dl (8.4-10.2); Chloride 86 mmol/L (98-107); Estimated Creatinine Clearance 29 ml/min; Glucose 115 mg/dl (70-99); Magnesium 1.8 mg/dl (1.6-2.3); Potassium 3.7 mmol/L (3.5-5.1); Sodium 134 mmol/L (135-145); Total Protein 6.3 g/dl (6.3-8.2); eGFR 41.57
--- NOTE | 2025-10-18 08:26 | W.PN.CD ---
Today's Communication / Plan
-
-Volume status improved with IV Lasix; breathing much improved.
-Patient does not want any aggressive measures and wishes to transition from palliative care to home hospice; plan is to discharge patient tomorrow on home hospice.
-Continue Lasix 40 mg IV BID for now.
-Can discharge to home hospice tomorrow on Lasix 80 mg PO BID.
Impression / Plan
-
80-year-old female with metastatic renal carcinoma (status-postchemotherapy, XRT, and right nephrectomy), chronic HFpEF, moderate to severe MR, moderate TR, hypertension, hyperlipidemia, previous CVA, and previous PE admitted with dyspnea and
fatigue. The patient is on palliative care at home. The patient's PCP recently doubled her dose of Lasix at home to 80 mg BID with no improvement in her edema or dyspnea.
Primary alto singer: Dr. Rizvi
Acute on chronic HFpEF/moderate to severe MR:
-Progressive acute on chronic HFpEF, TWIN (BUN/creatinine 80/2.1), and transaminitis consistent with multiorgan dysfunction.
-She was last hospitalized a little over 4 months ago with CHF; this will continue to recur in much shorter intervals with high risk for re-hospitalization.
-Volume status improved with IV Lasix; breathing much improved.
-Patient does not want any aggressive measures and wishes to transition from palliative care to home hospice; plan is to discharge patient tomorrow on home hospice.
-Continue Lasix 40 mg IV BID for now.
-Can discharge to home hospice tomorrow on Lasix 80 mg PO BID.
Renal cell carcinoma, metastatic
- Status-post right nephrectomy.
Abnormal troponin -acute nonischemic myocardial injury in the setting of TWIN
- Stopped trending troponins.
TWIN:
- Creatinine went down from 2.1 on admission to 1.3 today.
- Nephrology following while inpatient.
Transaminitis:
- Improved.
Hyponatremia, per Nephrology
Prior PE, on apixaban
Chronic pain, requiring opioid management, in the setting of metastatic renal cell carcinoma
Physical Exam
Vital Signs/Labs
Vital Signs
Temp Pulse Resp BP Pulse Ox
97.6 F 59 16 139/81 100
10/18/25 03:34 10/18/25 03:34 10/18/25 03:34 10/18/25 03:34 10/18/25 03:34
10/17/25 10/18/25 10/19/25
06:59 06:59 06:59
Actual Weight 66.82 kg 66.224 kg
10/18/25 07:24
10/18/25 07:24
PT 22.0 Sec (11.4-14.6) H 10/16/25 15:58
INR 1.91 10/16/25 15:58
Magnesium 1.8 mg/dl (1.6-2.3) 10/18/25 07:24
10/16/25
12:49
Gii-F-Xbkavjsosgz Pept > 43847
LAB Results
10/16/25 10/16/25 10/16/25
12:49 13:22 14:17
Troponin I Cancelled Cancelled 0.111 H*
10/16/25 10/17/25 10/17/25
22:02 03:08 06:15
Troponin I 0.147 H* D Cancelled Cancelled
10/17/25 10/17/25 10/17/25
08:28 09:08 14:00
Troponin I 0.437 H* Cancelled Cancelled
10/17/25
15:08
Troponin I Cancelled
Physical Exam
Constitutional: No acute distress and Comfortable
EENT: Anicteric
Cardiovascular: Rhythm & rate is regular, Systolic murmur present (2/6) and S1S2 is normal
Respiratory: Respiratory effort normal, Wheeze Absent and Other (Decreased bibasilar breath sounds)
GI: Soft
Neuro/Psych: AO x 3
Other: Skin (Warm, dry)
Data Reviewed
-
Date of Service: October 18, 2025
EKG: Tracing Personally Visualized and interpreted (Telemetry: Sinus rhythm with PACs)
Echo: Report Reviewed by me (Echo 05/18/2025: EF 60-65%, moderate to severe MR, moderate TR.)
Medical Tests (PFT, Pathology etc): Discussed with Patient
Labs: Labs Reviewed by me
[2025-10-18 08:38] LABS: Carbon Dioxide 38 mmol/L (22-30)
--- NOTE | 2025-10-18 08:52 | W.PN.HOSP.TC ---
Today's Communication/Plan
-
IV Lasix. Discharge planning.
Assessment / Plan
Assessment / Plan
Physical exam:
General: Acute on chronically ill
HEENT: Normocephalic, Atraumatic and Moist Mucous Membranes
Respiratory: Clear to auscultation bilaterally; Negative Wheezes, or Rhonchi
Cardiac: Regular Rhythm and S1/S2
GI: Soft, Nontender and Nondistended
Musculoskeletal: No Clubbing, No Cyanosis. Bilateral lower extremity edema improving.
Neuro: Awake, Alert and Oriented, no neurological deficit
Psych: Calm
A/P:
Acute on chronic HFpEF:
IV Lasix 40 mg twice daily and plan to switch to oral tomorrow (prior doses of Lasix 80 mg twice a day)
Monitor daily weights
Monitor ins and outs
Cardiology consult appreciated
PT eval
Hospice consult appreciated and plan to go to home hospice tomorrow at 11 AM
Acute hypoxic respiratory insufficiency:
Wean oxygen as tolerated
Diuresis
TWIN:
Likely cardiorenal syndrome
Renal function improving
Monitor renal function
Nephrology consult appreciated
Elevated LFTs:
Likely passive venous congestion
Trend in a.m.
Elevated troponin:
Elevated troponin due to non-ischemic myocardial injury due to heart failure
No need to trend
Moderate mitral and tricuspid regurgitation:
On diuretics
Metastatic renal cell carcinoma:
Status post right nephrectomy in the past
Hyponatremia:
Likely hypervolemia related
Monitor trend in a.m.
Hypothyroidism:
Continue thyroid replacement
Hypokalemia:
Replete and trend
History of PE:
On anticoagulation, Eliquis
Chronic pain with chronic opiate dependence:
Continue pain medication
History of spinal infection:
On Nuzyra
DVT prophylaxis:
Eliquis
CODE STATUS:
Full code
Total time spent on today's encounter was 36 minutes which included time spent in counseling the patient/family regarding diagnosis and treatment plan as listed above, goals of care, and symptom management. Case was discussed with nursing staff,
specialists, and care coordinators/case management. All labs and imaging personally reviewed by me. Remainder the time spent in detailed review of previous records, lab data, imaging, and other medical provider documentation.
Anticipated Discharge: Within 24 hours
Subjective/Interval History
-
Date of Service: October 18, 2025
Patient feels better overall. Less shortness of breath. No chest pain.
Objective Data
-
Labs:
Laboratory Results
10/18/25
07:24
WBC 5.9
Hgb 13.8
Hct 43.4
Plt Count 152
Sodium 134 L
Potassium 3.7
Chloride 86 L
Carbon Dioxide 38 H
BUN 53 H
Creatinine 1.3 H
Glucose 115 H
Calcium 8.7
Total Bilirubin 1.1
AST 348 H
ALT 658 H*
Alkaline Phosphatase 149 H
Vital Signs:
Vital Signs
Temp Pulse Resp BP Pulse Ox
97.8 F 66 18 154/74 100
10/18/25 07:30 10/18/25 07:30 10/18/25 07:30 10/18/25 07:30 10/18/25 07:30
I&O
10/17/25 10/18/25 10/19/25
06:59 06:59 06:59
Intake Total 440 / 440
Output Total 950 / 950 1590 / 1590 300 / 300
Balance -950 / -950 -1150 / -1150 -300 / -300
[2025-10-18 11:10] VITALS: BP 144/78
[2025-10-18] MEDS: NON-FORMULARY ITEM 300 MG PO (12:04)
--- NOTE | 2025-10-18 12:38 | W.PN.NEPH.PH ---
Today's Communication / Plan
-
Follow BMP
Assessment/Plan
-
Assessment
TWIN
Hyponatremia
Hypokalemia
Metabolic alkalosis
Decompensated heart failure preserved ejection fraction
Severe MR
Metastatic renal cancer
Solitary left kidney, status post left exophytic mass ablation
Plan
intravenous Lasix will be continued today
Plan for home tomorrow for hospice
Follow BMP
replete K as needed
follow LFTs
-
-
Date of Service: October 18, 2025
CC / HPI / ROS
-
Chief Complaint:
TWIN
History of Present Illness:
TWIN/Cr down to 1.3
K better at 3.7
diuresing well with IV lasix for decompensated HF
Na stable 134
LFTs improving
Troponin rising 0.437
Review of Systems:
no CP
mild SOB, on supplemental O2 5L
Labs
-
Labs:
WBC 5.9 10^3/uL (4.8-10.8) 10/18/25 07:24
RBC 4.32 10^6/uL (4.20-5.40) 10/18/25 07:24
Hgb 13.8 g/dL (12.0-16.0) 10/18/25 07:24
Hct 43.4 % (37.0-47.0) 10/18/25 07:24
Plt Count 152 10^3/uL (130-400) 10/18/25 07:24
Sodium 134 mmol/L (135-145) L 10/18/25 07:24
Potassium 3.7 mmol/L (3.5-5.1) 10/18/25 07:24
Chloride 86 mmol/L (98-107) L 10/18/25 07:24
Carbon Dioxide 38 mmol/L (22-30) H 10/18/25 07:24
BUN 53 mg/dl (7-17) H 10/18/25 07:24
Creatinine 1.3 mg/dL (0.6-1.0) H 10/18/25 07:24
eGFR 41.57 10/18/25 07:24
Glucose 115 mg/dl (70-99) H 10/18/25 07:24
Calcium 8.7 mg/dl (8.4-10.2) 10/18/25 07:24
Pnw-L-Atgagkpwwem Pept > 97996 pg/ml 10/16/25 12:49
Albumin 3.6 g/dl (3.5-5.0) 10/18/25 07:24
Physical Exam
-
Vital Signs:
Vital Signs
Temp Pulse Resp BP Pulse Ox
98 F 71 16 144/78 99
10/18/25 11:10 10/18/25 11:10 10/18/25 11:10 10/18/25 11:10 10/18/25 11:10
Cardiovascular:: Regular rate and rhythm
Respiratory:: Bilateral: Coarse
Lung Excursion:: Normal
Abdomen:: Nontender and Soft
Bowel Sounds:: Normal
Extremity Edema:: None: Bilateral:
--- NOTE | 2025-10-18 12:49 | W.DCSUMMARY ---
Addendum entered and electronically signed by Bashir Calvert MD 10/19/25 14:25:
Actual date of discharge 10/19/2025.
Original Note:
Discharge Summary
Discharge Data
Date of Admission: 10/16/25
Date of Discharge: 10/18/25
Total time spent discharging patient (in min): 35
-
Pending Results: No
Hospital Course
Patient 80 years old female with history of metastatic renal carcinoma with prior chemotherapy radiation therapy and right nephrectomy, CVA, PE, CHF, mitral regurgitation, hypertension, hyperlipidemia, hypothyroidism, GERD, came into the hospital
with lower extremity swelling and shortness of breath and found to be in heart failure exacerbation. Cardiology and nephrology consulted. Patient was diuresed aggressively with IV Lasix. She had TWIN felt to be related to cardiorenal syndrome.
Her renal function 2.1 upon admission and it went down to 1.3 day prior to discharge. Patient has also felt symptomatically much improved with diuresis. After discussion with her patient due to her end-stage nature of her heart failure and
multiple comorbidities and cardiac valvulopathy discussions took place about palliative care versus hospice. Patient and family decided to move forward with hospice care at home. Cardiology and nephrology have discussed with family as well as
myself. Arrangements have been made for patient to go with home hospice on 10/19/2025. Her IV diuresis will be switched to oral Lasix 80 mg twice a day as home doses. The rest of her medications have remained the same but after discussion with
hospice staff she will decide if some of the medications will be discontinued down the road. No other events were noticed.
Discharge duration: 35 minutes
Discharge Plan
-
Patient Disposition: Home with Hospice
Discharge Diagnosis/Procedures: Acute on chronic diastolic congestive heart failure. Acute hypoxic respiratory insufficiency. Acute kidney injury. Elevated liver function test. Elevated troponin. Moderate mitral and tricuspid regurgitation.
Hyponatremia. Hypokalemia. History of metastatic renal cell carcinoma. History of chronic pain with chronic opioid dependence.
Diet: Regular
Activity: As tolerated
Referrals:
Tyrese Simmons MD [Family Provider, Internal Medicine] - in less than 1 week
Prescriptions:
Continued
Eliquis 2.5 MG tablet
2.5 mg PO BID
lorazepam 0.5 mg Tablet
0.5 mg PO HS
lorazepam 0.5 mg Tablet
0.5 mg PO BIDPRN PRN (Reason: ANXIETY)
levothyroxine [Synthroid] 50 mcg Tablet
50 mcg PO MOTUWETHFRSA
levothyroxine [Synthroid] 50 mcg Tablet
150 mcg PO MONZON
morphine 15 mg tablet extended release
15 mg PO TID
polyethylene glycol 3350 [Miralax] 17 gram Powder In Packet
17 g PO DAILYPRN PRN (Reason: constipation)
sennosides-docusate sodium [Senna Plus] 8.6-50 mg Tablet
2 tab-cap PO HS
Nuzyra 150 mg Tablet
0 mg PO .COMPLEX
Rx Instructions:
take 2 tablets (300 mg) by mouth once daily@1200 with food
furosemide 80 mg tablet
80 mg PO BID
Discharge Date and Time
Print Language: BENINESE
[2025-10-18 15:20] VITALS: BP 163/84
[2025-10-18 20:37] VITALS: BP 131/75
[2025-10-18] MEDS: SENOKOT-S 2 TABLET PO (21:20)
[2025-10-18] MEDS: ATIVAN 0.5 MG PO (21:21)
[2025-10-18] MEDS: MIRALAX 17 GRAMS PO (21:37)
[2025-10-18 23:38] VITALS: BP 154/77
[2025-10-19 03:35] VITALS: BP 146/74
[2025-10-19] MEDS: SYNTHROID 50 MCG PO (05:28)
[2025-10-19 05:35] VITALS: BMI 28.4
[2025-10-19 07:25] VITALS: BP 160/77
[2025-10-19] MEDS: ELIQUIS 2.5 MG PO (08:12)
[2025-10-19] MEDS: MS CONTIN (EXTENDED RELEASE) 15 MG PO (08:12)
[2025-10-19] MEDS: LASIX 40 MG IV (08:12)
[2025-10-19 08:57] LABS: Hematocrit 42.8 % (37.0-47.0); Hemoglobin 14.2 g/dL (12.0-16.0); Mean Corp Hgb Conc. 33.2 g/dL (33.0-37.0); Mean Corpuscular Volume 97.5 fL (81.0-99.0); Platelet Count 147 10^3/uL (130-400); Red Cell Dist. Width 13.8 % (11.5-14.5)
--- NOTE | 2025-10-19 09:25 | VNURNOTE ---
Addendum entered by Karolyn Olson RN 10/19/25 09:50:
Noted that plan is for home hospice.
Original Note:
Chart reviewed. Patient is current with [facility]. Will continue to follow hospital course and DC plans.
[2025-10-19 09:45] LABS: ALT (SGPT) 493 U/L (0-35); AST (SGOT) 168 U/L (14-36); Albumin 3.8 g/dl (3.5-5.0); Alkaline Phosphatase 153 U/L (38-126); Blood Urea Nitrogen 37 mg/dl (7-17); Calcium 9.3 mg/dl (8.4-10.2); Carbon Dioxide 40 mmol/L (22-30); Chloride 83 mmol/L (98-107); Estimated Creatinine Clearance 35 ml/min; Glucose 129 mg/dl (70-99); Potassium 3.5 mmol/L (3.5-5.1); Sodium 131 mmol/L (135-145); Total Protein 6.5 g/dl (6.3-8.2); eGFR 50.80
[2025-10-19 11:15] VITALS: BP 157/91
--- NOTE | 2025-10-19 11:24 | W.HF.CON ---
Heart Failure
- LV Function
Ejection Fraction Percentage: 60-65
- ARNI
Patient already on ARNI: No
Heart Failure ARNI Not Indicated: LV Ejection Fraction >/= 40%
- ACEI/ARB
Patient already on ACEI/ARB: No
Heart Failure ACEI/ARB Not Indicated: LV Ejection Fraction > 40%
- Beta Harrison
Patient already on Evidence Based Beta Harrison: No
Heart Failure Evidence Based Beta Harrison Not Indicated: LV Ejection Fraction > 40%
- Mineralocorticord Receptor Antagonist
Patient already on MRA: No
Heart Failure MRA Not Indicated: LV Ejection Fraction > 40%
- SGLT-2 Inhibitor
Patient already on SGLT-2 Inhibitor: No
Heart Failure SGLT-2 Inhibitor Contraindication: Comfort Measures
- Afib Anticoagulation
Patient already on Anticoagulation for Afib: Yes
Heart Failure Afib Anticoagulation Contraindication: Comfort Measures Only
- NYHA CHF Classification
NYHA CHF Classification Level: Class III - Symptoms w/ min exertion, interferes w/ nml daily activity
- ACC/AHA Stage
ACC/AHA Stage: Stage C: Symptomatic Heart Failure
--- NOTE | 2025-10-19 11:56 | W.PN.HOSP.TC ---
Today's Communication/Plan
-
DC to home hospice today
Assessment / Plan
Assessment / Plan
Physical exam:
General: Acute on chronically ill
HEENT: Normocephalic, Atraumatic and Moist Mucous Membranes
Respiratory: Clear to auscultation bilaterally; Negative Wheezes, or Rhonchi
Cardiac: Regular Rhythm and S1/S2
GI: Soft, Nontender and Nondistended
Musculoskeletal: No Clubbing, No Cyanosis. Bilateral lower extremity edema improving.
Neuro: Awake, Alert and Oriented, no neurological deficit
Psych: Calm
A/P:
Acute on chronic HFpEF
Acute hypoxic respiratory insufficiency
TWIN
Cardiorenal syndrome
-s/p IV lasix, transitioned to oral
-appreciate Cardiology and Nephrology input
-plan is for home hospice
Elevated troponin:
Elevated troponin due to non-ischemic myocardial injury due to heart failure
No need to trend
Moderate mitral and tricuspid regurgitation:
On diuretics
Metastatic renal cell carcinoma:
Status post right nephrectomy in the past
Hyponatremia:
Likely hypervolemia related
Monitor trend in a.m.
Hypothyroidism:
Continue thyroid replacement
Hypokalemia:
Replete and trend
History of PE:
On anticoagulation, Eliquis
Chronic pain with chronic opiate dependence:
Continue pain medication
History of spinal infection:
On Nuzyra
DVT prophylaxis:
Eliquis
CODE STATUS:
Full code
Total time spent on today's encounter was 36 minutes which included time spent in counseling the patient/family regarding diagnosis and treatment plan as listed above, goals of care, and symptom management. Case was discussed with nursing staff,
specialists, and care coordinators/case management. All labs and imaging personally reviewed by me. Remainder the time spent in detailed review of previous records, lab data, imaging, and other medical provider documentation.
Anticipated Discharge: Today
Subjective/Interval History
-
Date of Service: October 19, 2025
ready for home hospice discharge
Objective Data
-
Labs:
Laboratory Results
10/19/25
07:56
WBC 5.7
Hgb 14.2
Hct 42.8
Plt Count 147
Sodium 131 L
Potassium 3.5
Chloride 83 L
Carbon Dioxide 40 H
BUN 37 H
Creatinine 1.1 H
Glucose 129 H
Calcium 9.3
Total Bilirubin 1.0
AST 168 H
ALT 493 H
Alkaline Phosphatase 153 H
Vital Signs:
Vital Signs
Temp Pulse Resp BP Pulse Ox
97.9 F 71 16 160/77 100
10/19/25 07:25 10/19/25 07:25 10/19/25 07:25 10/19/25 07:25 10/19/25 07:25
I&O
10/18/25 10/19/25 10/20/25
06:59 06:59 06:59
Intake Total 440 / 440 690 / 690
Output Total 1590 / 1590 1000 / 1000
Balance -1150 / -1150 -310 / -310
Review of Systems
-
History Source: Patient
All other systems: Reviewed and negative
Physical Exam
-
General: No Apparent Distress, Comfortable and Appears Chronically Ill
HEENT: Atraumatic and Moist Mucous Membranes
Respiratory: Negative Wheezes or Rales
Cardiac: S1/S2
GI: Soft, Nontender, Nondistended and Normal Bowel Sounds
Genito-urinary: No Costovertebral Tender
Musculoskeletal: No Clubbing, No Cyanosis and No Edema
Skin: Dry; Negative Rash
Neuro: Oriented and Nonfocal/Grossly Intact; Negative Slurred Speech
Psych: Calm and Intact Judgement/Insight
Data Reviewed
-
Diagnostic Radiology: Report Reviewed by me
Labs: Labs Reviewed by me
--- NOTE | 2025-10-19 12:27 | CM ---
CM reviewed chart, patient seen bedside with sons, for d.c today.
IMM reviewed with son, provided with copy, placed in chart.
Hospice to follow patient on discharge- update to liaison.
Son to transport home.
CM will continue to follow.
Plan; home with Hospice
Hospice
[2025-10-19] MEDS: NON-FORMULARY ITEM PO (12:37)
== END 2025-10-19 13:24 | disposition hospice, home (50) | DRG 291 ==
LOC: 4 WEST ACU 17:39
PROVIDERS: Emergency Medicine; Hospitalist; Physician Assistant; Student in an Organized Health Care Education/Training Program; ADMITTING PHYSICIAN Internal Medicine; ATTENDING PHYSICIAN Student in an Organized Health Care Education/Training Program; CONSULT PHYSICIAN Internal Medicine; CONSULT PHYSICIAN Specialist; EMERGENCY PHYSICIAN Student in an Organized Health Care Education/Training Program; FAMILY PHYSICIAN Internal Medicine
DX: I11.0 Hypertensive heart disease with heart failure (principal); I50.33 Acute on chronic diastolic (congestive) heart failure; J96.01 Acute respiratory failure with hypoxia; N17.9 Acute kidney failure, unspecified; E87.1 Hypo-osmolality and hyponatremia; F11.20 Opioid dependence, uncomplicated; E87.3 Alkalosis; K21.9 Gastro-esophageal reflux disease without esophagitis; E78.00 Pure hypercholesterolemia, unspecified; E89.0 Postprocedural hypothyroidism; I25.10 Atherosclerotic heart disease of native coronary artery without angina pectoris; D86.9 Sarcoidosis, unspecified; I08.1 Rheumatic disorders of both mitral and tricuspid valves; I5A Non-ischemic myocardial injury (non-traumatic); Z66 Do not resuscitate; M79.7 Fibromyalgia; R74.01 Elevation of levels of liver transaminase levels; R11.0 Nausea; G89.4 Chronic pain syndrome; M10.9 Gout, unspecified; E66.09 Other obesity due to excess calories; E87.6 Hypokalemia; Z68.28 Body mass index [BMI] 28.0-28.9, adult; Z92.21 Personal history of antineoplastic chemotherapy; Z92.3 Personal history of irradiation; Z86.73 Personal history of transient ischemic attack (TIA), and cerebral infarction without residual deficits; Z85.528 Personal history of other malignant neoplasm of kidney; Z86.711 Personal history of pulmonary embolism; Z86.718 Personal history of other venous thrombosis and embolism
CPT/HCPCS: 71046; 80048; 80053; 80076; 81003; 81015; 82248; 82570; 83735; 83880; 83930; 83935; 84132; 84156; 84300; 84484; 85025; 85027; 85610; 93005; 96374; 99285